=== PATIENT | female | born 1945 | race Caucasian/White ===

== ENCOUNTER → 2017-01-16 | Outpatient (CLI) | payer MEDICARE ==
[~2017-01-16] MED LIST: ANTIBIOTIC PO; ASP325T PO; ASP81CT PO; ASPI-624 PO; BISO1TAB8 PO; HYDR-34 PO; IBUP-15 PO; MAGN400C PO; MELO-195 PO; OXYC-12 PO; PNT40TEC PO; POTA10CA43 PO; POTASSIUM 20 MEQ PO; PREG50C PO; SIMV20TA3 PO; SULF1TAB38 PO; VIT1TABL56 PO; VITA1CAP59 PO
--- OUTSIDE RECORDS SUMMARY | 2017-01-16 10:53 | XMS REPORT | Continuity of Care Document ---
Author Author [facility] Organization [facility] Address Unknown Phone Unavailable Care Team Providers Care Production Line Assembler Name Role Phone HIGINIO OQUENDO MD PCP Insurance Providers Payer Name Policy Number Subscriber Name Relationship s Medicare [id number] Cindi Quijano 18 Self / Same As Patient Blue [employer] [facility] Supp [id number] Cindi Quijano 18 Self / Same As Patient Advance Directives Directive Response Recorded Date/Time Advance Directives Yes 02/17/14 7:26am Health Care Power of Slurry Tank Tender No 02/17/14 7:26am Organ Donor Yes 02/17/14 7:26am Problems No problem information available. Medications Current Home Medications Medication Dose Units Route Directions Days/Qty Instructions Start Date Pantoprazole Sodium 40 Mg 40 Mg Oral Daily 03/15/10 Pregabalin 50 Mg 50 Mg Oral Twice A Day 03/15/10 Bisoprolol Fumarate/Hctz 1 Each 2.5-6.5 Mg Oral Daily 08/28/11 Oxycodone Hcl/Acetaminophen 1 Each 1-2 Each Oral Q4-6H Prn 20 01/26/13 Aspirin 81 Mg 81 Mg Oral Daily 02/17/14 Past Home Medications Medication Directions Ordered Status Simvastatin 20 Mg Tablet, 20 Mg Oral Daily 03/15/10 Discontinued Aspirin 81 Mg Chew, 81 Mg Oral Daily 03/15/10 Discontinued Vit B Cmplx #9/Fa/Vit C/Vit E 1 Each Tablet, 1 Each Oral Daily 03/15/10 Discontinued Acetaminophen/Hydrocodone Bitart 1 Ea Tablet, 1 Ea Oral Q 4 - 6 Hr Prn Discontinued [Antibiotic] , 1 Oral Twice A Day 01/22/13 Discontinued Aspirin 325 Mg Tab, 325 Mg Oral Daily 01/26/13 Discontinued Magnesium Oxide 400 Mg Capsule, 400 Mg Oral Daily 01/26/13 Discontinued [Potassium 20 Meq] , 20 Meq Oral Once 01/26/13 Discontinued Social History Social History Problem Response Recorded Date/Time Alcohol Use Rarely Uses 01/22/2013 11:43am Recreational Drug Use No 01/22/2013 11:43am Recent Foreign Travel No 01/22/2013 11:43am Recent Infectious Disease Exposure No 01/22/2013 11:43am Hospitalization with Isolation Denies 01/26/2013 4:06pm Sexually Transmitted Disease No 01/22/2013 11:43am HIV/AIDS No 01/16/2013 10:09am Sexually Transmitted Disease No 01/22/2013 11:43am Hospitalization with Isolation Denies 01/26/2013 4:06pm Hx Sexually Transmitted Disorders No 05/28/2012 8:00am Hospital Discharge Instructions Current inpatient/outpatient. Discharge instructions are currently unavailable. Plan of Care Prescriptions Functional Status No functional status results. Allergies, Adverse Reactions, Alerts Allergen Type Severity Reaction Status Last Updated thiopental ([id number]) Allergy Unknown Active 05/27/07 Immunizations No immunization records. Vital Signs No known vital signs results. Results No known relevant diagnostic tests, laboratory data and/or discharge summary. Procedures Procedure Status Date Provider(s) Cardiac event recording Completed 05/31/16 ANABELLA MELISSA Encounters Encounter Location Arrival/Admit Date Discharge/Depart Date Attending Provider Registered Clinic [facility] 08/21/16 9:32am HIGINIO OQUENDO MD Discharged Recurring [facility] 06/23/16 6:41am 11:59pm ANABELLA MELISSA
--- NOTE | 2017-01-16 14:45 | Diagnostic Imaging Report ---
Three views of the right ribs. INDICATION: Right rib pain. FINDINGS: No rib fracture seen. The right lung is clear. No pleural effusion. IMPRESSION: No rib fracture seen. Dictated by: Dictated on workstation # [id number]
== END ==
LOC: RAD 10:49
PROVIDERS: ATTEND Family Medicine
DX: R07.81 Pleurodynia (principal)
CPT/HCPCS: 71100

== ENCOUNTER → 2017-12-14 | Outpatient (CLI) | payer MEDICARE ==
--- NOTE | 2017-12-14 12:16 | Diagnostic Imaging Report ---
INDICATION: Persistent cough and shortness of air. TIME OF EXAM: 12:18 p.m. Comparison is made with prior study from 01/25/2013. The heart size is normal. The pulmonary vascularity is unremarkable. The lungs are clear. No infiltrate, effusion or pneumothorax is detected. IMPRESSION: No acute cardiopulmonary process is detected. Dictated by: Dictated on workstation # [id number]
== END ==
LOC: RAD 11:23
PROVIDERS: ATTEND Nurse Practitioner Family
DX: R05 Cough (principal)
CPT/HCPCS: 71046

== ENCOUNTER → 2018-04-18 | Outpatient (CLI) | payer MEDICARE ==
[~2018-04-18] VITALS: Ht 172.7 cm; Wt 69.9 kg
[~2018-04-18] MED LIST changes: +CATHETER FLUSH 10 ML SYR IV PRN; +REGADENOSON 0.4 MG/5 ML SYR (LEXISCAN) IV ONE
[2018-04-18 08:19] VITALS: BP 159/75
--- NOTE | 2018-04-18 13:12 | STRESS TEST ---
DATE OF SERVICE: 04/18/2018 RESTING AND POST REGADENOSON TECHNETIUM-99M TETROFOSMIN SPECT CT IMAGING ORDERING PHYSICIAN: JAKE Teague PRIMARY CARE PHYSICIAN: Dr. Dahl. CLINICAL DIAGNOSIS: Shortness of breath, palpitations. Baseline images were carried out after injection of 10.69 mCi of technetium-99m tetrofosmin, but this was followed by 0.4 mg regadenoson and 31.2 mCi of technetium-99m tetrofosmin for stress imaging. The electrocardiogram showed sinus rhythm with frequent premature atrial contractions throughout the study. The electrocardiogram did not change significantly with regadenoson infusion. She tolerated the procedure well. Review of images at rest and following stress does not indicate any significant perfusion defects consistent with significant myocardial ischemia or infarction. Gating could not be carried out due to frequent ectopy. CONCLUSIONS: 1. No evidence of any significant myocardial ischemia or infarction on this study. 2. Gaiting could not be carried out due to frequent ectopy (frequent premature atrial contractions). Job ID: [id number] DocumentID: [id number] Dictated Date: 04/18/2018 10:01:24 Regional Operations Manager Date: 04/18/2018 13:12:06 Dictated By: CHARY CANTU MD, MA, FACP, FACC,
== END ==
LOC: CARD 06:57
PROVIDERS: ATTEND Nurse Practitioner Family
DX: R06.09 Other forms of dyspnea (principal); R00.2 Palpitations; I25.10 Atherosclerotic heart disease of native coronary artery without angina pectoris; I49.1 Atrial premature depolarization; I08.3 Combined rheumatic disorders of mitral, aortic and tricuspid valves
CPT/HCPCS: 93306

== ENCOUNTER 2018-05-07 07:59 | Day surgery (SDC) | payer MEDICARE ==
[~2018-05-07] VITALS: Ht 172.7 cm; Wt 69.9 kg
[2018-05-07] VITALS (10 sets, daily range): BP systolic 117–177; BP diastolic 54–92
[~2018-05-07 07:59] MED LIST changes: -CATHETER FLUSH 10 ML SYR IV PRN; -REGADENOSON 0.4 MG/5 ML SYR (LEXISCAN) IV ONE
[2018-05-07] MEDS ORDERED: NS IV 1000 ML 1,000 ML ONE (08:05)
[2018-05-07] MEDS ORDERED: LIDOCAINE 2% VISCOUS 15 ML UDC ONE (08:05)
[2018-05-07] MEDS ORDERED: NS IV 1000 ML 1,000 ML IV SCH (08:15)
[2018-05-07 08:39] LABS: HEMOGLOBIN 12.2 G/DL (11.5-16.0); MEAN PLATELET VOLUME 12.2 FL (7.4-10.4); RED BLOOD COUNT 3.8 10^6/uL (4.35-5.85); RED CELL DISTRIBUTION WIDTH 12.6 % (10.0-14.5)
[2018-05-07 08:53] LABS: PROTHROMBIN TIME PATIENT 13.4 SEC (12.2-14.7)
[2018-05-07 08:59] LABS: BILIRUBIN,TOTAL 0.7 MG/DL (0.1-1.0); CALCIUM 9.6 MG/DL (8.5-10.1); CREATININE SERUM 0.96 MG/DL (0.60-1.30); POTASSIUM 4.3 MMOL/L (3.6-5.0); TOTAL PROTEIN 6.9 GM/DL (6.4-8.2)
[2018-05-07] MEDS ORDERED: MELO15TA39 PO (09:12)
[2018-05-07] MEDS ORDERED: GABA-486 PO (09:12)
[2018-05-07] MEDS ORDERED: OMEP20CA12 PO (09:12)
[2018-05-07] MEDS ORDERED: METO-387 PO (09:12)
[2018-05-07] MEDS ORDERED: LYSI500T3 PO (09:15)
[2018-05-07] MEDS ORDERED: ASPI-983 PO (09:15)
[2018-05-07] MEDS ORDERED: CHOL20003 PO (09:15)
[2018-05-07] MEDS ORDERED: VITA150T PO (09:15)
[2018-05-07] MEDS ORDERED: ACET-2469 PO (09:15)
[2018-05-07] MEDS ORDERED: MIDAZOLAM 5 MG/5 ML (VERSED) VIAL ONE (10:24)
[2018-05-07] MEDS ORDERED: fentaNYL INJECTION 100 MCG/2 ML AMP ONE (10:24)
--- NOTE | 2018-05-07 11:12 | Cardiac Procedure Note-CS/ASA ---
Pre-Procedure Note Pre-Op Procedure Note H&P Reviewed The H&P was reviewed, patient examined and no changes noted. Date H&P Reviewed: May 07, 2018 Time H&P Reviewed: 11:11 Conscious Sedation Pre-Proced Time Reviewed: 11:11 ASA Class: 3 Airway Mallampati Classification: (pilot station appropriate class) I. II. III, IV Lungs Heart ASA score ASA 1: a normal healthy patient ASA 2: a patient with a mild systemic disease (mid diabetes, controlled hypertension, obesity ASA 3: a patient with a severe systemic disease that limits activity (angina , COPD, prior Myocardial infarction) ASA 4: a patient with an incapacitating disease that is a constant threat to life (CHF, renal failure) ASA 5: a moribund patient not expected to survive 24 hrs. (ruptured aneurysm) ASA 6: a declared brain patient whose organs are being harvested. For emergent operations, add the letter E after the classification Grade 2 Sedation Plan: Analgesia, Amnesia, Plan communicated to team members, Discussed options with patient/fam, Discussed risks with patient/fam Note The patient is an appropriate candidate to undergo the planned procedure, sedation, and anesthesia. The patient immediately re-assessed prior to indication. CHARY CANTU MD FACP FAC CCDS May 07, 2018 11:12
== END 2018-05-07 12:40 | disposition home or self-care (01) ==
LOC: CATH 07:59
PROVIDERS: ATTEND Internal Medicine Cardiovascular Disease
DX: I34.0 Nonrheumatic mitral (valve) insufficiency (principal); I27.20 Pulmonary hypertension, unspecified; I25.10 Atherosclerotic heart disease of native coronary artery without angina pectoris; Z79.82 Long term (current) use of aspirin; Z79.899 Other long term (current) drug therapy
CPT/HCPCS: 36415; 80053; 80061; 85027; 85610; 85730; 87081; 93312; 93325

== ENCOUNTER 2018-07-02 11:49 | Observation (INO) | payer MEDICARE ==
[~2018-07-02] VITALS: Ht 172.7 cm; Wt 69.7 kg
[2018-07-02] VITALS (7 sets, daily range): BP systolic 139–165; BP diastolic 69–108
[~2018-07-02 11:49] MED LIST changes: +ACET-2469 PO; +ASPI-983 PO; +CHOL20003 PO; +GABA-486 PO; +LYSI500T3 PO; +MELO15TA39 PO; +METO-387 PO; +OMEP20CA12 PO; +VITA150T PO
--- NOTE | 2018-07-02 16:35 | History & Physicial ---
History of Present Illness History of Present Illness Reason for visit/HPI PT IS A 72 Y/O FEMALE WHO IS KNOWN TO MY CLINIC. SHE PRESENTED TO THE OFFICE WITH COMPLAINTS OF FEELING DIZZY AND CLAMMY ALL DAY - SHE STATED THAT SHE WOKE UP FEELING OKAY THIS MORNING, THEN AROUND 3PM SHE FELT LIKE SHE WAS GOING TO PASS OUT EARLIER TODAY AND AGAIN PRIOR TO COMING IN TO THE OFFICE. SHE REPORTS THAT SHE DID NOT LOOSE CONSCIOUSNESS BUT HAD TO SIT SHE WAS SHORT OF BREATH AND LIGHT HEADED. SHE REPORTS THAT SHE WAS SEEN BY DR. CANTU RECENTLY AND TOLD T HAT SHE HAS MITRAL VALVE REGURGITATION, BUT DID NOT HAVE AN ARRHYTHMIA THAT SHE REMEMBERS., SHE TOOK METOPROLOL THIS MORNING. Date of Admission 07/02/18 Date Seen by Provider: Jul 02, 2018 Time Seen by Provider: 16:30 I consulted on this patient on 07/02/18 16:27 Attending Physician Higinio Dahl MD Admitting Physician Higinio Dahl MD Consult CHARY CANTU MD Allergies and Home Medications Allergies Coded Allergies: Thiopental (Verified Allergy, Unknown, 05/27/07) Home Medications Acetaminophen/Diphenhydramine 1 Each Tablet, 1 TAB PO HS, (Reported) Aspirin 81 Mg Tablet.dr, 81 MG PO HS, (Reported) Cholecalciferol (Vitamin D3) 2,000 Unit Capsule, 2,000 UNIT PO DAILY, (Reported) Gabapentin 100 Mg Capsule, 100 MG PO TID, (Reported) Lysine 500 Mg Tablet, 500 MG PO DAILY, (Reported) Meloxicam 15 Mg Tablet, 15 MG PO DAILY, (Reported) Metoprolol Succinate 25 Mg Tab.er.24h, 25 MG PO DAILY, (Reported) Omeprazole 20 Mg Capsule.dr, 20 MG PO DAILY, (Reported) Vitamin B Complex & Vit C No.4 150 Mg Tablet, 150 MG PO HS, (Reported) Patient Home Medication List Home Medication List Reviewed: Yes Past Tlojptg-Jusqtm-Dozpyc Hx Patient Social History Marrital Status: Living Status: LIVES AT HOME WITH SPOUSE Employed/Student: retired Alcohol Use: Denies Use Smoking Status: Never a Smoker 2nd Hand Smoke Exposure: No Physical Abuse Screen: No Sexual Abuse: No Recent Foreign Travel: No Contact w/other who traveled: No Recent Hopitalizations: No Recent Infectious Disease Expo: No Immunizations Up To Date Tetanus Booster (TDap): More than 5yrs Pediatric: No Date of Pneumonia Vaccine: Jul 07, 2014 Surgeries Abdominal (2000, ABDOMINAL REPAIR), Appendectomy, Breast (LUMPECTOMY), Hysterectomy (), Joint Replacement (2012 KNEE REPLACEMENT) Respiratory No Currently Using CPAP: No Currently Using BIPAP: No Cardiovascular Yes Hypertension, Valvular Heart Disease (MITRAL VALVE) Neurological No Reproductive System : No Hx Reproductive Disorders: No Sexually Transmitted Disease: No HIV/AIDS: No Female Reproductive Disorders: Denies RIP SAWYER History: Hysterectomy Genitourinary No Gastrointestinal Yes Gastroesophageal Reflux Musculoskeletal Yes Arthritis Endocrine History of Endocrine Disorders: No HEENT History of HEENT Disorders: No Loss of Vision: Denies Hearing Impairment: Denies Cancer No Psychosocial History of Psychiatric Problem: No Integumentary History of Skin or Integumenta: No Blood Transfusions History of Blood Disorders: No Adverse Reaction to a Blood Tr: No Reviewed Nursing Assessment Reviewed/Agree w Nursing PMH: Yes Family Medical History Significant Family History: Cancer (FATHER WITH COLON CANCER, MOM WITH LUNG CANCER, SISTER WITH LUNG CANCER), Other Conditions/Hx (GRANDMOTHER DEMENTIA) Review of Systems Constitutional: No chills, No fever; malaise, weakness EENTM: No hearing loss, No vision loss, No throat pain Respiratory: No cough, No dyspnea on exertion, No short of breath Cardiovascular: No edema, No palpitations; other (NEAR SYNCOPE) Gastrointestinal: No abdominal pain; nausea, vomiting Genitourinary: No dysuria, No frequency Musculoskeletal: No back pain, No joint swelling, No muscle weakness Skin: No change in color, No lesions Psychiatric/Neurological: Denies Anxiety, Denies Depressed All Other Systems Reviewed Negative Unless Noted: Yes Physical Exam Vital Signs Capillary Refill : Height, Weight, BMI Height: 5'8.00" Weight: 154lbs. 0.0oz. 69.753089kc; 23.4 BMI Method:Estimated General Appearance: WD/WN, Mild Distress (DUE TO DIZZINESS) HEENT: PERRL/EOMI, Pharynx Normal Neck: Full Range of Motion, Non Tender, Supple Respiratory: Chest Non Tender, Lungs Clear, Normal Breath Sounds, No Accessory Muscle Use, No Respiratory Distress Cardiovascular: Bradycardia, Irregularly Irregular Gastrointestinal: Normal Bowel Sounds, Non Tender, Soft Rectal: Deferred Extremity: Normal Capillary Refill, Non Tender, No Calf Tenderness, No Pedal Edema Neurologic/Psychiatric: Alert, Oriented x3 Skin: Normal Color, Warm/Dry Lymphatic: No Adenopathy Assessment/Plan Assessment and Plan BRADYCARDIA IRREGULAR RHYTHM - SUSPECT AFIB DIZZINESS NAUSEA AND EMESIS BRADYCARDIA - WITH IRREGULAR RHYTHM - SUSPECT AFIB - DISCUSSED WITH DR. CANTU - PT ADMITTED TO THE HOSPITAL FROM CLINIC, IV FLUIDS INITIATED AND EKG OBTAINED , PT PLACED IN ICU FOR CLOSE MONITORING AND TELEMETRY PLACED ON PATIENT. DIZZINESS WITH NAUSEA AND EMESIS - CHECK LABS, CHECK CHEST XRAY, ZOFRAN IV AND IV FLUIDS INITIATED. ADVANCE DIET TOLERATED. FOR GI PROPHYLAXIS, WILL START PROTONIX IV BID AND LOVENOX FOR DVT PROPHYLAXIS Admission Diagnosis BRADYCARDIA IRREGULAR RHYTHM - SUSPECT AFIB DIZZINESS NAUSEA AND EMESIS Admission Status: Inpatient Order (span 2 midnights) Reason for Inpatient Admission: ADMIT TO HOSPITAL FOR BRADYCARDIA, POSSIBLE NEW ONSET -WILL REQUIRE AT LEAST 2 MIDNIGHTS FOR INVESTIGATION AND TREATMENT STRATEGY TO BE DETERMINED AND INITATED FOR STABILIZATION OF SYMPTOMS. HIGINIO DAHL MD Jul 02, 2018 16:35
[2018-07-02] MEDS ORDERED: CATHETER FLUSH 10 ML SYR IV PRN (16:45)
[2018-07-02] MEDS: NS IV 1000 ML 1,000 ML IV SCH (16:58)
[2018-07-02] MEDS ORDERED: ONDANSETRON 4 MG/2 ML (SDV) Z0FRAN IVP PRN (17:00)
[2018-07-02] MEDS ORDERED: ONDANSETRON 4 MG/2 ML (SDV) Z0FRAN IVP NR (17:00)
[2018-07-02] MEDS: ENOXAPARIN 40 MG/0.4 ML (LOVENOX) SYR SC SCH (17:06)
--- NOTE | 2018-07-02 17:39 | Consultation-Cardiology ---
HPI-Cardiology Cardiology Consultation: Date of Consultation 07/02/18 Time Seen by Provider: 17:00 Date of Admission Attending Physician Faith Dahl MD Admitting Physician Faith Dahl MD Consulting Physician CHARY CANTU MD, MA, FACP, FACC, FSCAI, CCDS HPI: Chief Complaint: CC: Dizziness/vertigo 72 yo woman admitted from Dr Dahl's office where she had gone for eval of dizziness. Reports dizziness ("as if room spinning around") since this morning. Denies palp or syncope. Denies cp or shortness of breath or ankle swelling. Notes gen malaise and weakness. Denies focal weakness Review of Systems-Cardiology Review of Systems Constitutional: malaise; No weight loss, No weight gain Eyes: No vision change Ears/Nose/Throat: No ear discharge, No nasal drainage, No recent hearing loss Respiratory: As described under HPI Cardiovascular: As described under HPI Gastrointestinal: No constipation, No diarrhea, No difficulty swallowing, No vomiting Genitourinary: No dysuria, No hematuria, No urine frequency changes Musculoskeletal: No back pain, No joint pain Skin: No rash, No ulcerations Psychiatric/Neurological: As described under HPI Hematologic: No bleeding abnormalities All Other Systems Reviewed Negative Unless Noted: Yes WDR-Dkncxh-Qynlib Hx Patient Social History Marrital Status: Living Status: LIVES AT HOME WITH SPOUSE Employed/Student: retired Alcohol Use: Denies Use Smoking Status: Never a Smoker 2nd Hand Smoke Exposure: No Recent Foreign Travel: No Recent Infectious Disease Expo: No Physical Abuse Screen: No Sexual Abuse: No Immunizations Up To Date Tetanus Booster (TDap): More than 5yrs Date of Pneumonia Vaccine: Jul 07, 2014 Past Medical History PMH As described under Assessment. Family Medical History Family Medical History: Does not report fam h/o early CAD or SCD Allergies and Home Medications Allergies Coded Allergies: Thiopental (Verified Allergy, Unknown, 05/27/07) Home Medications Acetaminophen/Diphenhydramine 1 Each Tablet, 1 TAB PO HS, (Reported) Aspirin 81 Mg Tablet.dr, 81 MG PO HS, (Reported) Cholecalciferol (Vitamin D3) 2,000 Unit Capsule, 2,000 UNIT PO DAILY, (Reported) Gabapentin 100 Mg Capsule, 100 MG PO TID, (Reported) Lysine 500 Mg Tablet, 500 MG PO DAILY, (Reported) Meloxicam 15 Mg Tablet, 15 MG PO DAILY, (Reported) Metoprolol Succinate 25 Mg Tab.er.24h, 25 MG PO DAILY, (Reported) Omeprazole 20 Mg Capsule.dr, 20 MG PO DAILY, (Reported) Vitamin B Complex & Vit C No.4 150 Mg Tablet, 150 MG PO HS, (Reported) Patient Home Medication List Home Medication List Reviewed: Yes Physical Exam-Cardiology Physical Exam Vital Signs/I&O 07/02/18 07/02/18 16:46 17:00 Pulse 84 71 B/P (MAP) 163/69 (100) O2 Delivery Room Air Capillary Refill : Constitutional: well-developed, well-nourished HEENT: EOMI, hearing is well preserved; No xanthelasmas are seen Neck: carotid pulses are 2 + bilaterally, with good upstrokes Respiratory: No accessory muscle use, No respiratory distress; chest expansion is symmetric, lungs clear to auscultation Cardiovascular: other (Regular with intermittent irregularity, S1 and S2, 2/6 HSM at card apex that radiates towards the axilla) Gastrointestinal: No tender; soft; No guarding, No rebound; audible bowel sounds Extremities: No clubbing, No cyanosis, No significant edema Neurologic/Psychiatric: oriented x 3, grossly intact, power is 5/5 both on sides Skin: No rash on exposed areas, No ulcerations on exposed areas A/P-Cardiology Assessment/Admission Diagnosis Vertigo/dizziness, etiology undetermined Chronic MVP and mod mitral regurg. Echocardiogram of April 18, 2018 showed LVEF 60-65%. No regional wall motion abnormalities identified. Grade 1 diastolic dysfunction. Mild mitral valve prolapse, involving the posterior leaf. Mod to severe, 1-2+ MR. Mild aortic valve regurg. Mild to mod TR. PASP approx 35 mmHg. 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 Mod MR, some of which tracks along the posterior wall of the LA. LVEF 60-65% Chronic frequent PACs and PVCs, documented on several studies. 30-day Event Monitor of May/Jun 2016 showed frequent PACs and PVCS, but no a fib or VT or SVT recorded No significant coronary artery disease on cardiac catheterization of February 2010 MPI of April 18, 2018 showed no evidence of ischemia or infarction. Gating could not be carried out d/t freqent PAC's H/o carotid arterial disease, but no recent f/u Chronic left arm and shoulder discomfort due to post-herpetic neuralgia. Relative intolerance to statins H/o Vit D deficiency, being managed by her fam phy Status post right knee replacement per Dr. De Luna in December 2012. Chronic arthritis that causes marked pain and is reponsive only to NSAIDs ( unresponsive to acetaminophen) Discussion and Recomendations * Monitor rhythm * Screening labs * Consider a neuro w/u if no significant rhythm issues * I discussed her case with Dr Dahl on the phone CHARY CANTU MD FACP FACC CCDS Jul 02, 2018 17:39
--- NOTE | 2018-07-02 17:42 | Diagnostic Imaging Report ---
INDICATION: Dizziness and weakness. TIME OF EXAM: 5:48 PM COMPARISON: Correlation is made with prior study from 12/14/2017. FINDINGS: The heart is enlarged and stable. Lungs are clear. No infiltrate or failure is seen. No effusion or pneumothorax is detected. IMPRESSION: Cardiomegaly. No acute cardiopulmonary process is detected. Dictated by: Dictated on workstation # [id number]
[2018-07-02] MEDS: PANTOPRAZOLE 40 MG (PROTONIX) VIAL IV SCH (20:57)
--- OUTSIDE RECORDS SUMMARY | 2018-07-02 21:58 | XMS REPORT | CCD ---
Author Author [facility] Dahl Organization [facility] Address [address] [place] [address] Phone Care Team Providers Care Manager Baby Name Role Phone PP Unavailable CCM Unavailable Summary Purpose Interface Exchange Insurance Providers Payer name Policy type / Coverage type Covered democrat ID Effective Begin Date Effective End Date WPS Medicare Part B Medicare Part B [id number] Unknown Unknown [facility] Medicare Part B [id number] Unknown Unknown Family history Sister Diagnosis Age At Onset Cancer Unknown Father Diagnosis Age At Onset Colon cancer Unknown Cancer Unknown Sister Diagnosis Age At Onset lung cancer Unknown Mother Diagnosis Age At Onset lung cancer Unknown Grandmother Diagnosis Age At Onset Dementia Unknown Social History Social History Element Codes Description Effective Dates Marital status Unknown Zbigniew Dixon) 10/25/2017 Number of children Unknown 2 1 child 10/25/2017 Employment Unknown Retired 07/15/[address]: 112656464 Never smoker 07/15/2015 Alcohol history Unknown occasionally drinks alcohol three times a week 07/15/2015 Allergies, Adverse Reactions, Alerts Allergies, Adverse Reactions, Alerts data not found Past Medical History Illness Codes Condition Status Onset Date Resolved Date Acute laryngopharyngitis ICD-9: 465.0 ICD-10: J06.0 Active 11/08/2017 Unknown Other allergic rhinitis ICD-9: 477.8 ICD-10: J30.89 Active 11/08/2017 Unknown Encounter for general adult medical examination with abnormal findings ICD-9: V70.0 ICD-10: Z00.01 Active 10/25/2017 Unknown Vitamin D deficiency, unspecified ICD-9: 268.9 ICD-10: E55.9 Active 07/14/2015 Unknown Encounter for screening mammogram for malignant neoplasm of breast ICD-9: V76.12 ICD-10: Z12.31 Active 01/16/2017 Unknown Gastro-esophageal reflux disease without esophagitis ICD-9: 530.81 ICD-10: K21.9 Active 07/14/2015 Unknown Pleurodynia ICD-9: 786.50 ICD-10: R07.81 Active 01/16/2017 Unknown Acute suppurative otitis media without spontaneous rupture of ear drum, right ear ICD-9: 382.00 ICD-10: H66.001 Active 08/23/2016 Unknown Other infective otitis externa, right ear ICD-9: 380.10 ICD-10: H60.391 Active 08/23/2016 Unknown Palpitations ICD-9: 785.1 ICD-10: R00.2 Active 07/17/2016 Unknown Osteoarthritis, unspecified site ICD-9: 715.90 ICD-10: M19.9 Active 07/14/2015 Unknown Osteoarthritis Unknown Active 07/15/2015 Unknown ESOPHAGEAL REFLUX ICD- 9: 530.81 Active 07/14/2015 Unknown Osteoarthritis ICD-9: 715.90 Active 07/14/2015 Unknown Osteopenia ICD-9: 733.90 Active 07/14/2015 Unknown Vitamin D deficiency ICD-9: 268.9 Active 07/14/2015 Unknown Problems Condition Codes Effective Dates Condition Status Acute laryngopharyngitis ICD-9: 465.0 ICD-10: J06.0 11/08/2017 Active Other allergic rhinitis ICD-9: 477.8 ICD-10: J30.89 11/08/2017 Active Encounter for general adult medical examination with abnormal findings ICD-9: V70.0 ICD-10: Z00.01 10/25/2017 Active Vitamin D deficiency, unspecified ICD-9: 268.9 ICD-10: E55.9 07/14/2015 Active Encounter for screening mammogram for malignant neoplasm of breast ICD-9: V76.12 ICD-10: Z12.31 01/16/2017 Active Gastro-esophageal reflux disease without esophagitis ICD-9: 530.81 ICD-10: K21.9 07/14/2015 Active Pleurodynia ICD-9: 786.50 ICD-10: R07.81 01/16/2017 Active Acute suppurative otitis media without spontaneous rupture of ear drum, right ear ICD-9: 382.00 ICD-10: H66.001 08/23/2016 Active Other infective otitis externa, right ear ICD-9: 380.10 ICD-10: H60.391 08/23/2016 Active Palpitations ICD-9: 785.1 ICD-10: R00.2 07/17/2016 Active Osteoarthritis, unspecified site ICD-9: 715.90 ICD-10: M19.9 07/14/2015 Active Osteoarthritis Unknown 07/15/2015 Active ESOPHAGEAL REFLUX ICD- 9: 530.81 07/14/2015 Active Osteoarthritis ICD-9: 715.90 07/14/2015 Active Osteopenia ICD-9: 733.90 07/14/2015 Active Vitamin D deficiency ICD-9: 268.9 07/14/2015 Active Medications Medication Codes Instructions Start Date Stop Date Status Fill Instructions Tessalon Perles 100 mg capsule RxNorm: 474486 1-2 Capsule(s) PO TID as needed cough 11/08/2017 No Stop Date Active prednisone 20 mg tablet RxNorm: 533293 2 Tablet(s) PO daily 08/201811/12/2017 Active Augmentin 875 mg-125 mg tablet RxNorm: 307431 1 Tablet(s) PO BID 11/08/2017 11/10/2017 Active to equal a total of 10 days Kenalog 40 mg/mL suspension for injection RxNorm: 8212115 1 Milliliter(s) Inj 11/08/2017 11/08/2017 Inactive meloxicam 15 mg tablet RxNorm: 794208 Tablet(s) 1 TABLET(S) PO DAILY 06/08/2017 06/02/2018 Active omeprazole 20 mg tablet,delayed release RxNorm: 217914 1 TABLET(S) PO DAILY 04/16/2017 01/10/2018 Active gabapentin 100 mg capsule RxNorm: 265661 1 CAPSULE(S) PO TID 11/16/2017 Active gabapentin 100 mg capsule RxNorm: 391683 1 CAPSULE(S) PO TID 12/22/2016 Inactive amoxicillin 500 mg capsule RxNorm: 445074 1 Capsule(s) PO TID 08/24/2016 09/02/2016 Inactive ciprofloxacin 0.3 % eye drops RxNorm: 526698 2 Drop(s) OTIC BID 08/24/2016 10/24/2017 Inactive omeprazole 20 mg tablet,delayed release RxNorm: 037686 1 TABLET(S) PO DAILY 07/18/2016 04/13/2017 Inactive meloxicam 15 mg tablet RxNorm: 259658 Tablet(s) 1 TABLET(S) PO DAILY 05/17/2016 05/16/2016 Inactive meloxicam 15 mg tablet RxNorm: 038713 Tablet(s) 1 TABLET(S) PO DAILY 05/17/2016 07/17/2016 Inactive aspirin 81 mg tablet RxNorm: 996676 1 Tablet(s) PO daily 2015 No Stop Date Active Vitamin D2 50,000 unit capsule RxNorm: 873435 Capsule(s) 1 CAPSULE(S) PO QW 01/13/2016 07/17/2016 Inactive Patient requests 90 days supply Vitamin D2 50,000 unit capsule RxNorm: 410467 Capsule(s) 1 CAPSULE(S) PO QW 01/13/2016 01/12/2016 Inactive Patient requests 90 days supply gabapentin 100 mg capsule RxNorm: 870232 1 CAPSULE(S) PO TID 05/23/2016 Inactive meloxicam 15 mg tablet RxNorm: 383946 1 TABLET(S) PO DAILY 05/09/2016 Inactive Vitamin D2 50,000 unit capsule RxNorm: 229711 1 Capsule(s) PO QW 07/28/2015 07/27/2015 Inactive Vitamin D2 50,000 unit capsule RxNorm: 528241 1 CAPSULE(S) PO QW 07/28/2015 01/12/2016 Inactive Patient requests 90 days supply Vitamin D2 50,000 unit capsule RxNorm: 953210 1 Capsule(s) PO QW 07/28/2015 07/27/2015 Inactive omeprazole 20 mg tablet,delayed release RxNorm: 473559 1 Tablet(s) PO daily 07/26/2015 07/17/2016 Inactive meloxicam 15 mg tablet RxNorm: 178576 1 Tablet(s) PO daily 11/11/2015 Inactive gabapentin 100 mg capsule RxNorm: 010501 1 CAPSULE(S) PO TID 08/28/2015 Inactive Patient requests 90 days supply gabapentin 100 mg capsule RxNorm: 426058 1 Capsule(s) PO TID 05/27/2015 Inactive gabapentin 100 mg capsule RxNorm: 896029 1 Capsule(s) PO TID 05/27/2015 Inactive gabapentin 100 mg capsule RxNorm: 721373 1 Capsule(s) PO TID 09/24/2015 Inactive meloxicam 15 mg tablet RxNorm: 189318 1 Tablet(s) PO daily 07/20/2015 Inactive metoprolol succinate ER 25 mg tablet,extended release 24 hr RxNorm: 720757 1 Tablet(s) PO daily No Start Date Active Vitamin D3 5,000 unit tablet RxNorm: 405498 1 Tablet(s) PO daily No Start Date Active Tylenol PM Extra Strength 25 mg-500 mg tablet RxNorm: 6469623 1 Tablet(s) PO QHS No Start Date Active Super B Complex oral RxNorm: 80150 oral No Start Date Active lysine oral RxNorm: 6536 oral No Start Date Active aspirin 81 mg tablet RxNorm: 468151 1 Tablet(s) PO BID No Start Date 01/12/2016 Inactive meloxicam 15 mg tablet RxNorm: 958768 1 Tablet(s) PO daily No Start Date 04/21/2015 Inactive Vitamin D3 2,000 unit tablet RxNorm: 803595 1 Tablet(s) PO daily No Start Date 07/18/2016 Inactive Vitamin B RxNorm: 1 PO BID No Start Date Inactive omeprazole 20 mg tablet,delayed release RxNorm: 554078 1 Tablet(s) PO daily No Start Date 07/25/2015 Inactive Medication Administered Medication Codes Instructions Start Date Status Kenalog 40 mg/mL suspension for injection RxNorm: 1415892 1Milliliter 11/08/2017 No longer Active Immunizations No Immunization data Assessments Condition Codes Effective Dates Acute laryngopharyngitis ICD-10: J06.0 ICD-9: 465.0 11/08/2017 Other allergic rhinitis ICD-10: J30.89 ICD-9: 477.8 11/08/2017 Vitamin D deficiency, unspecified ICD-10: E55.9 ICD-9: 268.9 10/25/2017 Encounter for general adult medical examination with abnormal findings ICD-10: Z00.01 ICD-9: V70.0 10/25/2017 Pleurodynia ICD-10: R07.81 ICD-9: 786.50 01/16/2017 Encounter for screening mammogram for malignant neoplasm of breast ICD-10: Z12.31 ICD-9: V76.12 01/16/2017 Gastro-esophageal reflux disease without esophagitis ICD-10 : K21.9 ICD-9: 530.81 01/16/2017 Other infective otitis externa, right ear ICD-10: H60.391 ICD-9: 380.10 08/24/2016 Acute suppurative otitis media without spontaneous rupture of ear drum, right ear ICD-10: H66.001 ICD-9: 382.00 08/24/2016 Palpitations ICD-10: R00.2 ICD-9: 785.1 07/18/2016 Osteoarthritis, unspecified site ICD-10: M19.9 ICD-9: 715.90 01/13/2016 ESOPHAGEAL REFLUX ICD-9: 530.81 2014 Osteopenia ICD-9: 733.90 07/15/2015 Osteoarthritis ICD-9: 715.90 07/15/2015 Vitamin D deficiency ICD-9: 268.9 2014 Reason For Visit Reason For Visit Effective Dates Notes cough 11/08/2017 Annual Medicare Wellness Exam 10/25/2017 gastroesophageal reflux 01/16/2017 earache 08/24/2016 arthralgia(s) 07/18/2016 arthralgia(s) 01/13/2016 arthralgia(s) 07/15/2015 Results Observation Observation Code Item Item Code Result Date Vitamin D 25 Oh [id number] VITAMIN D, 25 HYDROXY 47.37 ng/mL Tsh Ord6 hTSH II 1.58 uIU/mL 10/25/2017 Cbc With Differential Ord2 WBC 7.60 K/ul 10/25/2017 Cbc With Differential Ord2 RBC 3.93 M/ul 10/25/2017 Cbc With Differential Ord2 HGB 12.3 g/dl 10/25/2017 Cbc With Differential Ord2 Neut% 66.6 % 10/25/2017 Cbc With Differential Ord2 HCT 37.7 % 10/25/2017 Cbc With Differential Ord2 MCV 95.9 fl 10/25/2017 Cbc With Differential Ord2 Lymph% 22.8 % 10/25/2017 Cbc With Differential Ord2 MCH 31.3 pg 10/25/2017 Cbc With Differential Ord2 [place]% 8.2 % 10/25/2017 Cbc With Differential Ord2 MCHC 32.6 pg 10/25/2017 Cbc With Differential Ord2 Eos% 2.1 % 10/25/2017 Cbc With Differential Ord2 PLT 247 K/ul 10/25/2017 Cbc With Differential Ord2 Baso% 0.3 % 10/25/2017 Cbc With Differential Ord2 RDW 12.8 % 10/25/2017 Cbc With Differential Ord2 Neut ABS# 5.07 K/ul 10/25/2017 Cbc With Differential Ord2 Lymph ABS# 1.73 K/ul 10/25/2017 Cbc With Differential Ord2 [place] ABS# 0.6 K/ul 10/25/2017 Cbc With Differential Ord2 Eos ABS# 0.2 K/ul 10/25/2017 Cbc With Differential Ord2 Baso ABS# 0.0 K/ul 10/25/2017 Comp Metabolic Ztr286 NA 139 mEq/L 10/25/2017 Comp Metabolic Xxv413 K 4.3 mEq/L 10/25/2017 Comp Metabolic Lxp062 CL 104 mEq/L 10/25/2017 Comp Metabolic Abq735 CO2 27.0 mEq/L 10/25/2017 Comp Metabolic Coe236 ANION GAP 12 10/25/2017 Comp Metabolic Lji017 GLUCOSE 83 mg/dL 10/25/2017 Comp Metabolic Oaa932 Creat 0.9 mg/dL 10/25/2017 Comp Metabolic Vbq699 eGFR 65 ml/min/1.73m2 10/25/2017 Comp Metabolic Jcz911 BUN 24 mg/dL 10/25/2017 Comp Metabolic Mol413 B/C Ratio 26.7 Ratio 10/25/2017 Comp Metabolic Aue677 CALCIUM 9.5 mg/dL 10/25/2017 Comp Metabolic Wih357 ALK PHOS 65 U/L 10/25/2017 Comp Metabolic Evl109 AST(SGOT) 16 U/L 10/25/2017 Comp Metabolic Uau575 ALT(SGPT) 14 U/L 10/25/2017 Comp Metabolic Exg361 BILI T 0.5 mg/dL 10/25/2017 Comp Metabolic Jzz059 ALBUMIN 4.3 g/dL 10/25/2017 Comp Metabolic Amm839 TPRO 7.1 g/dL 10/25/2017 Comp Metabolic Web799 GLOB 2.8 g/dL 10/25/2017 Comp Metabolic Fpo867 A/G Ratio 1.5 Ratio 10/25/2017 Comp Metabolic Qjp477 Osmo 281 mOsmo 10/25/2017 Vitamin D 25 Oh [id number] VITAMIN D, 25 HYDROXY 108.57 ng/mL 07/12/2016 Comp Metabolic Ogh964 NA 139 mEq/L 05/30/2016 Comp Metabolic Bth320 K 4.4 mEq/L 05/30/2016 Comp Metabolic Nmd121 CL 105 mEq/L 05/30/2016 Comp Metabolic Nvv779 CO2 27.0 mEq/L 05/30/2016 Comp Metabolic Xkt168 ANION GAP 11 05/30/2016 Comp Metabolic Znm386 GLUCOSE 88 mg/dL 05/30/2016 Comp Metabolic Ylk274 Creat 0.9 mg/dL 05/30/2016 Comp Metabolic Lqa828 eGFR 66 ml/min/1.73m2 05/30/2016 Comp Metabolic Gqg697 BUN 18 mg/dL 05/30/2016 Comp Metabolic Bjk098 B/C Ratio 20.2 Ratio 05/30/2016 Comp Metabolic Mxs887 CALCIUM 9.8 mg/dL 05/30/2016 Comp Metabolic Xyp528 ALK PHOS 77 U/L 05/30/2016 Comp Metabolic Vfj622 AST(SGOT) 16 U/L 05/30/2016 Comp Metabolic Cek204 ALT(SGPT) 12 U/L 05/30/2016 Comp Metabolic Lgy753 BILI T 0.7 mg/dL 05/30/2016 Comp Metabolic Glr388 ALBUMIN 4.6 g/dL 05/30/2016 Comp Metabolic Uyn457 TPRO 7.7 g/dL 05/30/2016 Comp Metabolic Jxk225 GLOB 3.1 g/dL 05/30/2016 Comp Metabolic Agz738 A/G Ratio 1.5 Ratio 05/30/2016 Comp Metabolic Zhg646 Osmo 279 mOsmo 05/30/2016 Tsh Ord6 hTSH II 1.67 uIU/mL 05/30/2016 Cbc With Differential Ord2 WBC 6.97 K/ul 05/30/2016 Cbc With Differential Ord2 RBC 3.95 M/ul 05/30/2016 Cbc With Differential Ord2 HGB 12.6 g/dl 05/30/2016 Cbc With Differential Ord2 Neut% 64.1 % 05/30/2016 Cbc With Differential Ord2 HCT 38.1 % 05/30/2016 Cbc With Differential Ord2 MCV 96.5 fl 05/30/2016 Cbc With Differential Ord2 Lymph% 25.0 % 05/30/2016 Cbc With Differential Ord2 MCH 31.9 pg 05/30/2016 Cbc With Differential Ord2 [place]% 7.9 % 05/30/2016 Cbc With Differential Ord2 MCHC 33.1 pg 05/30/2016 Cbc With Differential Ord2 Eos% 2.6 % 05/30/2016 Cbc With Differential Ord2 PLT 242 K/ul 05/30/2016 Cbc With Differential Ord2 Baso% 0.4 % 05/30/2016 Cbc With Differential Ord2 RDW 12.9 % 05/30/2016 Cbc With Differential Ord2 Neut ABS# 4.47 K/ul 05/30/2016 Cbc With Differential Ord2 Lymph ABS# 1.74 K/ul 05/30/2016 Cbc With Differential Ord2 [place] ABS# 0.6 K/ul 05/30/2016 Cbc With Differential Ord2 Eos ABS# 0.2 K/ul 05/30/2016 Cbc With Differential Ord2 Baso ABS# 0.0 K/ul 05/30/2016 Magnesium Ord90 Mag 1.9 mg/dL 05/30/2016 Vitamin D 25 Oh [id number] VITAMIN D, 25 HYDROXY 26.82 ng/mL Cbc With Differential Ord2 WBC 6.9 K/uL 07/15/2015 Cbc With Differential Ord2 LYM 2.3 K/uL 07/15/2015 Cbc With Differential Ord2 LYM% 33.6 % 07/15/2015 Cbc With Differential Ord2 NEUT/GRAN 4.0 K/uL 07/15/2015 Cbc With Differential Ord2 NEUT/GRAN % 58.4 % 07/15/2015 Cbc With Differential Ord2 MID 0.6 K/uL 07/15/2015 Cbc With Differential Ord2 MID% 8.0 % 07/15/2015 Cbc With Differential Ord2 RBC 4.08 M/uL 07/15/2015 Cbc With Differential Ord2 HGB 12.5 g/dL 07/15/2015 Cbc With Differential Ord2 HCT 38.8 % 07/15/2015 Cbc With Differential Ord2 MCV 95 fL 07/15/2015 Cbc With Differential Ord2 MCH 31 pg 07/15/2015 Cbc With Differential Ord2 MCHC 32 g/dL 07/15/2015 Cbc With Differential Ord2 PLT 260 K/uL 07/15/2015 Cbc With Differential Ord2 RDW 14.0 % 07/15/2015 Comp Metabolic Yhp712 NA 136 mEq/L 07/15/2015 Comp Metabolic Ujq559 K 4.8 mEq/L 07/15/2015 Comp Metabolic Raw639 CL 104 mEq/L 07/15/2015 Comp Metabolic Foa317 CO2 28.0 mEq/L 07/15/2015 Comp Metabolic Loa864 ANION GAP 9 07/15/2015 Comp Metabolic Lwl969 GLUCOSE 82 mg/dL 07/15/2015 Comp Metabolic Nbp145 Creat 0.9 mg/dL 07/15/2015 Comp Metabolic Igt249 eGFR 65 ml/min/1.73m2 07/15/2015 Comp Metabolic Ojj369 BUN 24 mg/dL 07/15/2015 Comp Metabolic Ybm881 B/C Ratio 26.4 Ratio 07/15/2015 Comp Metabolic Zsv614 CALCIUM 9.9 mg/dL 07/15/2015 Comp Metabolic Kgw584 ALK PHOS 81 U/L 07/15/2015 Comp Metabolic Xgb389 AST(SGOT) 18 U/L 07/15/2015 Comp Metabolic Vzr552 ALT(SGPT) 16 U/L 07/15/2015 Comp Metabolic Xbc096 BILI T 0.5 mg/dL 07/15/2015 Comp Metabolic Zwq251 ALBUMIN 4.4 g/dL 07/15/2015 Comp Metabolic Mob021 TPRO 7.1 g/dL 07/15/2015 Comp Metabolic Dkf983 GLOB 2.7 g/dL 07/15/2015 Comp Metabolic Nrf548 A/G Ratio 1.6 Ratio 07/15/2015 Comp Metabolic Aaa171 Osmo 275 mOsmo 07/15/2015 Lipid Ord30 CHOL 228 mg/dL 07/15/2015 Lipid Ord30 HDL 51.0 mg/dl 07/15/2015 Lipid Ord30 TRIG 121 mg/dL 07/15/2015 Lipid Ord30 LDL 153 mg/dL 07/15/2015 Lipid Ord30 C/HDL 4.5 Ratio 07/15/2015 Tsh Ord6 hTSH II 1.71 uIU/mL 07/15/2015 Review of Systems System Result Effective Dates Constitutional recent illness 11/08/2017 Constitutional chills 11/08/2017 Constitutional No diaphoresis 11/08/2017 Constitutional fever 11/08/2017 Eyes No eye erythema 11/08/2017 Ears/Nose/Throat/Neck nasal allergies 08/2018 Ears/Nose/Throat/Neck nasal discharge 08/2018 Ears/Nose/Throat/Neck postnasal drip 08/2018 Ears/Nose/Throat/Neck sinus congestion Ears/Nose/Throat/Neck sore throat 2017 Cardiovascular No chest pain/pressure 08/2018 Cardiovascular No dyspnea 11/08/2017 Respiratory No chest congestion 2017 Respiratory cough 11/08/2017 Respiratory No dyspnea 11/08/2017 Gastrointestinal No constipation 2017 Gastrointestinal No diarrhea 11/08/2017 Gastrointestinal No nausea 11/08/2017 Gastrointestinal No vomiting 11/08/2017 Dermatologic No rash 11/08/2017 Neurologic No alteration of consciousness 11/08/2017 Neurologic No mental status change 2017 Constitutional No recent illness 2016 Constitutional No chills 10/25/2017 Constitutional No diaphoresis 10/25/2017 Constitutional No fever 10/25/2017 Eyes No eye erythema 10/25/2017 Ears/Nose/Throat/Neck No nasal discharge 10/25/2017 Cardiovascular No chest pain/pressure Cardiovascular No dyspnea 10/25/2017 Respiratory No cough 10/25/2017 Respiratory No dyspnea 10/25/2017 Neurologic No alteration of consciousness 10/25/2017 Neurologic No mental status change 2016 Constitutional No recent illness 2016 Constitutional No chills 01/16/2017 Constitutional No fatigue 01/16/2017 Constitutional No fever 01/16/2017 Constitutional No insomnia 01/16/2017 Constitutional No malaise 01/16/2017 Eyes No blindness 01/16/2017 Eyes No vision change 01/16/2017 Ears/Nose/Throat/Neck No dental pain Ears/Nose/Throat/Neck No dizziness 2016 Ears/Nose/Throat/Neck No dysphagia 2016 Ears/Nose/Throat/Neck No headache 2016 Ears/Nose/Throat/Neck No hearing loss Ears/Nose/Throat/Neck No nasal allergies 01/16/2017 Ears/Nose/Throat/Neck No sore throat Ears/Nose/Throat/Neck No postnasal drip 01/16/2017 Ears/Nose/Throat/Neck No sinus congestion 01/16/2017 Cardiovascular No chest pain/pressure Cardiovascular No dyspnea 01/16/2017 Cardiovascular No edema 01/16/2017 Cardiovascular No exercise intolerance Cardiovascular No fatigue 01/16/2017 Cardiovascular No near-syncope/dizziness 01/16/2017 Cardiovascular palpitations 01/16/2017 Respiratory No chest tightness 2016 Respiratory No cough 01/16/2017 Respiratory No dyspnea 01/16/2017 Respiratory No pedal edema 01/16/2017 Gastrointestinal No abdominal pain 2016 Gastrointestinal No constipation 2016 Gastrointestinal No diarrhea 01/16/2017 Gastrointestinal No gastroesophageal reflux 01/16/2017 Gastrointestinal No nausea 01/16/2017 Gastrointestinal No vomiting 01/16/2017 Genitourinary/Nephrology No dysuria 01/16 Genitourinary/Nephrology No nocturia Genitourinary/Nephrology No urinary incontinence 01/16/2017 Musculoskeletal No stiffness 01/16/2017 Musculoskeletal No swelling 01/16/2017 Musculoskeletal No muscle weakness 2016 Musculoskeletal No myalgias 01/16/2017 Dermatologic pigmentation change 2016 Dermatologic No rash 01/16/2017 Dermatologic No sores 01/16/2017 Dermatologic No scar 01/16/2017 Neurologic No dizziness 01/16/2017 Neurologic No headache 01/16/2017 Neurologic No neck pain 01/16/2017 Neurologic No syncope 01/16/2017 Psychiatric No anxiety 01/16/2017 Psychiatric No depression 01/16/2017 Constitutional recent illness 08/24/2016 Constitutional No fever 08/24/2016 Constitutional No chills 08/24/2016 Constitutional No diaphoresis 08/24/2016 Eyes No eye erythema 08/24/2016 Ears/Nose/Throat/Neck otalgia 08/24/2016 Ears/Nose/Throat/Neck nasal allergies Ears/Nose/Throat/Neck nasal discharge Cardiovascular No chest pain/pressure Cardiovascular No dyspnea 08/24/2016 Respiratory No dyspnea 08/24/2016 Dermatologic No rash 08/24/2016 Neurologic No alteration of consciousness 08/24/2016 Neurologic No mental status change 2015 Constitutional No recent illness 2015 Constitutional No chills 07/18/2016 Constitutional No fatigue 07/18/2016 Constitutional No fever 07/18/2016 Constitutional No insomnia 07/18/2016 Constitutional No malaise 07/18/2016 Eyes No blindness 07/18/2016 Eyes No vision change 07/18/2016 Ears/Nose/Throat/Neck No dental pain Ears/Nose/Throat/Neck No dizziness 2015 Ears/Nose/Throat/Neck No dysphagia 2015 Ears/Nose/Throat/Neck No headache 2015 Ears/Nose/Throat/Neck No hearing loss Ears/Nose/Throat/Neck No nasal allergies 07/18/2016 Ears/Nose/Throat/Neck No sore throat Ears/Nose/Throat/Neck No postnasal drip 07/18/2016 Ears/Nose/Throat/Neck No sinus congestion 07/18/2016 Cardiovascular No chest pain/pressure Cardiovascular No dyspnea 07/18/2016 Cardiovascular No edema 07/18/2016 Cardiovascular No exercise intolerance Cardiovascular No fatigue 07/18/2016 Cardiovascular No near-syncope/dizziness 07/18/2016 Respiratory No chest tightness 2015 Respiratory No cough 07/18/2016 Respiratory No dyspnea 07/18/2016 Respiratory No pedal edema 07/18/2016 Gastrointestinal No abdominal pain 2015 Gastrointestinal No constipation 2015 Gastrointestinal No diarrhea 07/18/2016 Gastrointestinal No gastroesophageal reflux 07/18/2016 Gastrointestinal No nausea 07/18/2016 Gastrointestinal No vomiting 07/18/2016 Genitourinary/Nephrology No dysuria 07/18 Genitourinary/Nephrology No nocturia Genitourinary/Nephrology No urinary incontinence 07/18/2016 Musculoskeletal No stiffness 07/18/2016 Musculoskeletal No swelling 07/18/2016 Musculoskeletal No muscle weakness 2015 Musculoskeletal No myalgias 07/18/2016 Dermatologic No rash 07/18/2016 Dermatologic No sores 07/18/2016 Dermatologic No scar 07/18/2016 Neurologic No dizziness 07/18/2016 Neurologic No headache 07/18/2016 Neurologic No neck pain 07/18/2016 Neurologic No syncope 07/18/2016 Psychiatric No anxiety 07/18/2016 Psychiatric No depression 07/18/2016 Dermatologic pigmentation change 2015 Cardiovascular palpitations 07/18/2016 Constitutional No recent illness 2015 Constitutional No chills 01/13/2016 Constitutional No fatigue 01/13/2016 Constitutional No fever 01/13/2016 Constitutional No insomnia 01/13/2016 Constitutional No malaise 01/13/2016 Eyes No blindness 01/13/2016 Eyes No vision change 01/13/2016 Ears/Nose/Throat/Neck No dental pain Ears/Nose/Throat/Neck No dizziness 2015 Ears/Nose/Throat/Neck No dysphagia 2015 Ears/Nose/Throat/Neck No headache 2015 Ears/Nose/Throat/Neck No hearing loss Ears/Nose/Throat/Neck No nasal allergies 01/13/2016 Ears/Nose/Throat/Neck No sore throat Ears/Nose/Throat/Neck No postnasal drip 01/13/2016 Ears/Nose/Throat/Neck No sinus congestion 01/13/2016 Cardiovascular No chest pain/pressure Cardiovascular No dyspnea 01/13/2016 Cardiovascular No edema 01/13/2016 Cardiovascular No exercise intolerance Cardiovascular No fatigue 01/13/2016 Cardiovascular No near-syncope/dizziness 01/13/2016 Respiratory No chest tightness 2015 Respiratory No cough 01/13/2016 Respiratory No dyspnea 01/13/2016 Respiratory No pedal edema 01/13/2016 Gastrointestinal No abdominal pain 2015 Gastrointestinal No constipation 2015 Gastrointestinal No diarrhea 01/13/2016 Gastrointestinal No gastroesophageal reflux 01/13/2016 Gastrointestinal No nausea 01/13/2016 Gastrointestinal No vomiting 01/13/2016 Genitourinary/Nephrology No dysuria 01/12 Genitourinary/Nephrology No nocturia Genitourinary/Nephrology No urinary incontinence 01/13/2016 Musculoskeletal No stiffness 01/13/2016 Musculoskeletal No swelling 01/13/2016 Musculoskeletal No muscle weakness 2015 Musculoskeletal No myalgias 01/13/2016 Dermatologic No rash 01/13/2016 Dermatologic No sores 01/13/2016 Dermatologic No scar 01/13/2016 Neurologic No dizziness 01/13/2016 Neurologic No headache 01/13/2016 Neurologic No neck pain 01/13/2016 Neurologic No syncope 01/13/2016 Psychiatric No anxiety 01/13/2016 Psychiatric No depression 01/13/2016 Constitutional No recent illness 2014 Constitutional No chills 07/15/2015 Constitutional No fatigue 07/15/2015 Constitutional No fever 07/15/2015 Constitutional No insomnia 07/15/2015 Constitutional No malaise 07/15/2015 Eyes No blindness 07/15/2015 Eyes No vision change 07/15/2015 Ears/Nose/Throat/Neck No dental pain Ears/Nose/Throat/Neck No dizziness 2014 Ears/Nose/Throat/Neck No dysphagia 2014 Ears/Nose/Throat/Neck No headache 2014 Ears/Nose/Throat/Neck No hearing loss Ears/Nose/Throat/Neck No nasal allergies 07/15/2015 Ears/Nose/Throat/Neck No sore throat Ears/Nose/Throat/Neck No postnasal drip 07/15/2015 Ears/Nose/Throat/Neck No sinus congestion 07/15/2015 Cardiovascular No chest pain/pressure Cardiovascular No dyspnea 07/15/2015 Cardiovascular No edema 07/15/2015 Cardiovascular No exercise intolerance Cardiovascular No fatigue 07/15/2015 Cardiovascular No near-syncope/dizziness 07/15/2015 Respiratory No chest tightness 2014 Respiratory No cough 07/15/2015 Respiratory No dyspnea 07/15/2015 Respiratory No pedal edema 07/15/2015 Gastrointestinal No abdominal pain 2014 Gastrointestinal No constipation 2014 Gastrointestinal No diarrhea 07/15/2015 Gastrointestinal No gastroesophageal reflux 07/15/2015 Gastrointestinal No nausea 07/15/2015 Gastrointestinal No vomiting 07/15/2015 Genitourinary/Nephrology No dysuria 07/15 Genitourinary/Nephrology No nocturia Genitourinary/Nephrology No urinary incontinence 07/15/2015 Musculoskeletal No stiffness 07/15/2015 Musculoskeletal No swelling 07/15/2015 Musculoskeletal No muscle weakness 2014 Musculoskeletal No myalgias 07/15/2015 Dermatologic No rash 07/15/2015 Dermatologic No sores 07/15/2015 Dermatologic No scar 07/15/2015 Neurologic No dizziness 07/15/2015 Neurologic No headache 07/15/2015 Neurologic No neck pain 07/15/2015 Neurologic No syncope 07/15/2015 Psychiatric No anxiety 07/15/2015 Psychiatric No depression 07/15/2015 Physical Exam Exam Name System Name Item Name Status Result Effective Dates Notes Full Exam - ENT Constitutional general appearance Overall: well nourished 11/08/2017 None Full Exam - ENT Constitutional general appearance Overall: well developed 11/08/2017 None Full Exam - ENT Constitutional general appearance Overall: in no acute distress 11/08/2017 None Full Exam - ENT Ears/Nose/Throat otoscopic exam Overall: external auditory canals normal 11/08/2017 None Full Exam - ENT Ears/Nose/Throat otoscopic exam Left tympanic membrane: air -fluid level 11/08/2017 None Full Exam - ENT Ears/Nose/Throat otoscopic exam Right tympanic membrane: air-fluid level 11/08/2017 None Full Exam - ENT Ears/Nose/Throat lips/ teeth/gingiva Overall: benign lips 11/08/2017 None Full Exam - ENT Ears/Nose/Throat oropharynx Overall: oral mucosa clear 11/08/2017 None Full Exam - ENT Ears/Nose/Throat oropharynx Posterior Pharynx: clear post nasal drainage 11/08/2017 None Full Exam - ENT Ears/Nose/Throat oropharynx Posterior Pharynx: erythema 11/08/2017 None Full Exam - ENT Respiratory inspection Overall: no retractions 11/08/2017 None Full Exam - ENT Respiratory inspection Overall: normal rate 08/2018 None Full Exam - ENT Cardiovascular auscultation of heart Rate: normal rate 11/08/2017 None Full Exam - ENT Cardiovascular auscultation of heart Rhythm: regular rhythm 11/08/2017 None Full Exam - ENT Lymphatic palpation of lymph nodes Overall: anterior cervical chain benign 11/08/2017 None Full Exam - ENT Lymphatic palpation of lymph nodes Overall: posterior cervical chain benign 11/08/2017 None Full Exam - ENT Neurologic mood and affect Overall: normal mood 11/08/2017 None Full Exam - ENT Neurologic mood and affect Overall: normal affect 11/08/2017 None Full Exam - ENT Neurologic orientation Overall: oriented to person, place and time 11/08/2017 None Full Exam - ENT Respiratory auscultation Diffuse: diminished None Full Exam - General 1994 Constitutional general appearance Overall: well developed 10/25/2017 None Full Exam - General 1994 Constitutional general appearance Overall: in no acute distress 10/25/2017 None Full Exam - General 1994 Constitutional general appearance Overall: well nourished 10/25/2017 None Full Exam - General 1994 Eyes conjunctiva /eyelids Overall: conjunctiva clear 10/25/2017 None Full Exam - General 1994 Eyes conjunctiva /eyelids Overall: eyelids normal 10/25/2017 None Full Exam - General 1994 Ears/Nose/Throat lips/teeth/gingiva Overall: benign lips 10/25/2017 None Full Exam - General 1994 Respiratory respiratory effort/rhythm Overall: no retractions 10/25/2017 None Full Exam - General 1994 Respiratory respiratory effort/rhythm Overall: normal rate 10/25/2017 None Full Exam - General 1994 Musculoskeletal head and neck Overall: head atraumatic 10/25/2017 None Full Exam - General 1994 Neurologic cranial nerves Overall: crainial nerves 2 - 12 grossly intact 10/25/2017 None Full Exam - General 1994 Psychiatric orientation/consciousness Overall: oriented to person, place and time 10/25/2017 None Full Exam - General 1994 Psychiatric mood and affect Overall: normal mood and affect 10/25/2017 None Full Exam - General 1994 Psychiatric appearance Overall: well-groomed, good eye contact 10/25/2017 None Full Exam - General 1994 Eyes conjunctiva /eyelids Overall: cornea clear 10/25/2017 None Full Exam - General 1994 Eyes pupils and irises Overall: pupils equal, round, reactive to light and accomodation 10/25/2017 None Full Exam - General 1994 Constitutional general appearance Development: well developed 01/16/2017 None Full Exam - General 1994 Constitutional general appearance Development: appears stated age 0301/16/2017 None Full Exam - General 1994 Constitutional general appearance Hygiene/Attention to Grooming: good hygiene 01/16/2017 None Full Exam - General 1994 Eyes conjunctiva /eyelids Overall: conjunctiva clear 01/16/2017 None Full Exam - General 1994 Eyes conjunctiva /eyelids Overall: cornea clear 01/16/2017 None Full Exam - General 1994 Eyes conjunctiva /eyelids Overall: eyelids normal 01/16/2017 None Full Exam - General 1994 Eyes pupils and irises Overall: pupils equal, round, reactive to light and accomodation 01/16/2017 None Full Exam - General 1994 Ears/Nose/Throat otoscopic exam Overall: external auditory canals clear 01/16/2017 None Full Exam - General 1994 Ears/Nose/Throat otoscopic exam Overall: tympanic membranes clear 01/16/2017 None Full Exam - General 1994 Ears/Nose/Throat lips/teeth/gingiva Overall: benign lips 01/16/2017 None Full Exam - General 1994 Ears/Nose/Throat lips/teeth/gingiva Overall: normal dentition 01/16/2017 None Full Exam - General 1994 Ears/Nose/Throat oral cavity/pharynx/larynx Overall: oral mucosa clear 01/16/2017 None Full Exam - General 1994 Ears/Nose/Throat oral cavity/pharynx/larynx Overall: oropharyngeal mucosa clear 01/16/2017 None Full Exam - General 1994 Ears/Nose/Throat oral cavity/pharynx/larynx Overall: hypopharynx benign 01/16/2017 None Full Exam - General 1994 Ears/Nose/Throat oral cavity/pharynx/larynx Overall: no masses 01/16/2017 None Full Exam - General 1994 Respiratory auscultation Overall: breath sounds clear bilaterally 01/16/2017 None Full Exam - General 1994 Respiratory respiratory effort/rhythm Overall: no retractions 01/16/2017 None Full Exam - General 1994 Respiratory respiratory effort/rhythm Overall: normal rate 01/16/2017 None Full Exam - General 1994 Cardiovascular extremities Overall: no clubbing 01/16/2017 None Full Exam - General 1994 Cardiovascular auscultation of heart Overall: regular rate 01/16/2017 None Full Exam - General 1994 Cardiovascular auscultation of heart Overall: normal heart sounds 01/16/2017 None Full Exam - General 1994 Abdomen abdominal exam Overall: no tenderness 01/16/2017 None Full Exam - General 1994 Abdomen abdominal exam Overall: normal bowel sounds 01/16/2017 None Full Exam - General 1994 Musculoskeletal spine, ribs and pelvis Overall: spine benign 01/16/2017 None Full Exam - General 1994 Musculoskeletal spine, ribs and pelvis Overall: sacroiliac joint benign 01/16/2017 None Full Exam - General 1994 Musculoskeletal spine, ribs and pelvis Overall: good posture 01/16/2017 None Full Exam - General 1994 Musculoskeletal head and neck Overall: head atraumatic 01/16/2017 None Full Exam - General 1994 Musculoskeletal head and neck Overall: cervical spine benign 01/16/2017 None Full Exam - General 1994 Integument inspection of skin Pigmentation: ecchymosis 01/16/2017 on legs Full Exam - General 1994 Neurologic deep tendon reflexes Overall: deep tendon reflexes intact 01/16/2017 None Full Exam - General 1994 Neurologic cranial nerves Overall: crainial nerves 2 - 12 grossly intact 01/16/2017 None Full Exam - General 1994 Psychiatric orientation/consciousness Overall: oriented to person, place and time 01/16/2017 None Full Exam - General 1994 Psychiatric mood and affect Overall: normal mood and affect 01/16/2017 None Full Exam - ENT Constitutional general appearance Overall: well nourished 08/24/2016 None Full Exam - ENT Constitutional general appearance Overall: well developed 08/24/2016 None Full Exam - ENT Constitutional general appearance Overall: in no acute distress 08/24/2016 None Full Exam - ENT Ears/Nose/Throat otoscopic exam Left external auditory canal: minimal cerumen 08/24/2016 None Full Exam - ENT Ears/Nose/Throat otoscopic exam Right external auditory canal: tender 08/24/2016 None Full Exam - ENT Ears/Nose/Throat otoscopic exam Right external auditory canal: erythematous 08/24/2016 None Full Exam - ENT Ears/Nose/Throat otoscopic exam Right external auditory canal: edematous 08/24/2016 None Full Exam - ENT Ears/Nose/Throat otoscopic exam Right external auditory canal: drainage 08/24/2016 None Full Exam - ENT Ears/Nose/Throat otoscopic exam Left tympanic membrane: intact 08/24/2016 None Full Exam - ENT Ears/Nose/Throat otoscopic exam Left tympanic membrane: mobile 08/24/2016 None Full Exam - ENT Ears/Nose/Throat otoscopic exam Right tympanic membrane: bulging 08/24/2016 None Full Exam - ENT Ears/Nose/Throat otoscopic exam Right tympanic membrane: erythematous 08/24/2016 None Full Exam - ENT Ears/Nose/Throat lips/ teeth/gingiva Overall: benign lips 08/24/2016 None Full Exam - ENT Ears/Nose/Throat oropharynx Overall: oral mucosa clear 08/24/2016 None Full Exam - ENT Ears/Nose/Throat oropharynx Posterior Pharynx: clear post nasal drainage 08/24/2016 None Full Exam - ENT Respiratory auscultation Overall: breath sounds clear bilaterally 08/24/2016 None Full Exam - ENT Respiratory inspection Overall: no retractions 08/24/2016 None Full Exam - ENT Respiratory inspection Overall: normal rate None Full Exam - ENT Face and Head palpation Right maxillary sinus: tender 08/24/2016 None Full Exam - ENT Face and Head palpation Left maxillary sinus: tender 08/24/2016 None Full Exam - ENT Cardiovascular auscultation of heart Overall: regular rate 08/24/2016 None Full Exam - ENT Cardiovascular auscultation of heart Overall: normal heart sounds 08/24/2016 None Full Exam - ENT Lymphatic palpation of lymph nodes Overall: shotty lymphadenopathy 08/24/2016 None Full Exam - ENT Neurologic mood and affect Overall: normal mood 08/24/2016 None Full Exam - ENT Neurologic mood and affect Overall: normal affect 08/24/2016 None Full Exam - ENT Neurologic orientation Overall: oriented to person, place and time 08/24/2016 None Full Exam - General 1994 Constitutional general appearance Development: well developed 07/18/2016 None Full Exam - General 1994 Constitutional general appearance Development: appears stated age 0907/18/2016 None Full Exam - General 1994 Constitutional general appearance Hygiene/Attention to Grooming: good hygiene 07/18/2016 None Full Exam - General 1994 Eyes conjunctiva /eyelids Overall: conjunctiva clear 07/18/2016 None Full Exam - General 1994 Eyes conjunctiva /eyelids Overall: cornea clear 07/18/2016 None Full Exam - General 1994 Eyes conjunctiva /eyelids Overall: eyelids normal 07/18/2016 None Full Exam - General 1994 Eyes pupils and irises Overall: pupils equal, round, reactive to light and accomodation 07/18/2016 None Full Exam - General 1994 Ears/Nose/Throat otoscopic exam Overall: external auditory canals clear 07/18/2016 None Full Exam - General 1994 Ears/Nose/Throat otoscopic exam Overall: tympanic membranes clear 07/18/2016 None Full Exam - General 1994 Ears/Nose/Throat lips/teeth/gingiva Overall: benign lips 07/18/2016 None Full Exam - General 1994 Ears/Nose/Throat lips/teeth/gingiva Overall: normal dentition 07/18/2016 None Full Exam - General 1994 Ears/Nose/Throat oral cavity/pharynx/larynx Overall: oral mucosa clear 07/18/2016 None Full Exam - General 1994 Ears/Nose/Throat oral cavity/pharynx/larynx Overall: oropharyngeal mucosa clear 07/18/2016 None Full Exam - General 1994 Ears/Nose/Throat oral cavity/pharynx/larynx Overall: hypopharynx benign 07/18/2016 None Full Exam - General 1994 Ears/Nose/Throat oral cavity/pharynx/larynx Overall: no masses 07/18/2016 None Full Exam - General 1994 Respiratory auscultation Overall: breath sounds clear bilaterally 07/18/2016 None Full Exam - General 1994 Respiratory respiratory effort/rhythm Overall: no retractions 07/18/2016 None Full Exam - General 1994 Respiratory respiratory effort/rhythm Overall: normal rate 07/18/2016 None Full Exam - General 1994 Cardiovascular extremities Overall: no clubbing 07/18/2016 None Full Exam - General 1994 Cardiovascular auscultation of heart Overall: regular rate 07/18/2016 None Full Exam - General 1994 Cardiovascular auscultation of heart Overall: normal heart sounds 07/18/2016 None Full Exam - General 1994 Abdomen abdominal exam Overall: no tenderness 07/18/2016 None Full Exam - General 1994 Abdomen abdominal exam Overall: normal bowel sounds 07/18/2016 None Full Exam - General 1994 Musculoskeletal spine, ribs and pelvis Overall: spine benign 07/18/2016 None Full Exam - General 1994 Musculoskeletal spine, ribs and pelvis Overall: sacroiliac joint benign 07/18/2016 None Full Exam - General 1994 Musculoskeletal spine, ribs and pelvis Overall: good posture 07/18/2016 None Full Exam - General 1994 Musculoskeletal head and neck Overall: head atraumatic 07/18/2016 None Full Exam - General 1994 Musculoskeletal head and neck Overall: cervical spine benign 07/18/2016 None Full Exam - General 1994 Neurologic deep tendon reflexes Overall: deep tendon reflexes intact 07/18/2016 None Full Exam - General 1994 Neurologic cranial nerves Overall: crainial nerves 2 - 12 grossly intact 07/18/2016 None Full Exam - General 1994 Psychiatric orientation/consciousness Overall: oriented to person, place and time 07/18/2016 None Full Exam - General 1994 Psychiatric mood and affect Overall: normal mood and affect 07/18/2016 None Full Exam - General 1994 Integument inspection of skin Pigmentation: ecchymosis 07/18/2016 on legs Full Exam - General 1994 Constitutional general appearance Development: well developed 01/13/2016 None Full Exam - General 1994 Constitutional general appearance Development: appears stated age 0301/13/2016 None Full Exam - General 1994 Constitutional general appearance Hygiene/Attention to Grooming: good hygiene 01/13/2016 None Full Exam - General 1994 Eyes conjunctiva /eyelids Overall: conjunctiva clear 01/13/2016 None Full Exam - General 1994 Eyes conjunctiva /eyelids Overall: cornea clear 01/13/2016 None Full Exam - General 1994 Eyes conjunctiva /eyelids Overall: eyelids normal 01/13/2016 None Full Exam - General 1994 Eyes pupils and irises Overall: pupils equal, round, reactive to light and accomodation 01/13/2016 None Full Exam - General 1994 Ears/Nose/Throat otoscopic exam Overall: external auditory canals clear 01/13/2016 None Full Exam - General 1994 Ears/Nose/Throat otoscopic exam Overall: tympanic membranes clear 01/13/2016 None Full Exam - General 1994 Ears/Nose/Throat lips/teeth/gingiva Overall: benign lips 01/13/2016 None Full Exam - General 1994 Ears/Nose/Throat lips/teeth/gingiva Overall: normal dentition 01/13/2016 None Full Exam - General 1994 Ears/Nose/Throat oral cavity/pharynx/larynx Overall: oral mucosa clear 01/13/2016 None Full Exam - General 1994 Ears/Nose/Throat oral cavity/pharynx/larynx Overall: oropharyngeal mucosa clear 01/13/2016 None Full Exam - General 1994 Ears/Nose/Throat oral cavity/pharynx/larynx Overall: hypopharynx benign 01/13/2016 None Full Exam - General 1994 Ears/Nose/Throat oral cavity/pharynx/larynx Overall: no masses 01/13/2016 None Full Exam - General 1994 Respiratory auscultation Overall: breath sounds clear bilaterally 01/13/2016 None Full Exam - General 1994 Respiratory respiratory effort/rhythm Overall: no retractions 01/13/2016 None Full Exam - General 1994 Respiratory respiratory effort/rhythm Overall: normal rate 01/13/2016 None Full Exam - General 1994 Cardiovascular extremities Overall: no clubbing 01/13/2016 None Full Exam - General 1994 Cardiovascular auscultation of heart Overall: regular rate 01/13/2016 None Full Exam - General 1994 Cardiovascular auscultation of heart Overall: normal heart sounds 01/13/2016 None Full Exam - General 1994 Abdomen abdominal exam Overall: no tenderness 01/13/2016 None Full Exam - General 1994 Abdomen abdominal exam Overall: normal bowel sounds 01/13/2016 None Full Exam - General 1994 Lymphatic neck nodes Overall: anterior cervical chain benign 01/13/2016 None Full Exam - General 1994 Lymphatic neck nodes Overall: posterior cervical chain benign 01/13/2016 None Full Exam - General 1994 Musculoskeletal spine, ribs and pelvis Overall: spine benign 01/13/2016 None Full Exam - General 1994 Musculoskeletal spine, ribs and pelvis Overall: sacroiliac joint benign 01/13/2016 None Full Exam - General 1994 Musculoskeletal spine, ribs and pelvis Overall: good posture 01/13/2016 None Full Exam - General 1994 Musculoskeletal head and neck Overall: head atraumatic 01/13/2016 None Full Exam - General 1994 Musculoskeletal head and neck Overall: cervical spine benign 01/13/2016 None Full Exam - General 1994 Integument inspection of skin Overall: few scattered moles, no gross abnormalities 01/13/2016 None Full Exam - General 1994 Neurologic deep tendon reflexes Overall: deep tendon reflexes intact 01/13/2016 None Full Exam - General 1994 Neurologic cranial nerves Overall: crainial nerves 2 - 12 grossly intact 01/13/2016 None Full Exam - General 1994 Psychiatric orientation/consciousness Overall: oriented to person, place and time 01/13/2016 None Full Exam - General 1994 Psychiatric mood and affect Overall: normal mood and affect 01/13/2016 None Full Exam - General 1994 Constitutional general appearance Development: well developed 07/15/2015 None Full Exam - General 1994 Constitutional general appearance Development: appears stated age 0907/15/2015 None Full Exam - General 1994 Constitutional general appearance Hygiene/Attention to Grooming: good hygiene 07/15/2015 None Full Exam - General 1994 Eyes conjunctiva /eyelids Overall: conjunctiva clear 07/15/2015 None Full Exam - General 1994 Eyes conjunctiva /eyelids Overall: cornea clear 07/15/2015 None Full Exam - General 1994 Eyes conjunctiva /eyelids Overall: eyelids normal 07/15/2015 None Full Exam - General 1994 Eyes pupils and irises Overall: pupils equal, round, reactive to light and accomodation 07/15/2015 None Full Exam - General 1994 Ears/Nose/Throat otoscopic exam Overall: external auditory canals clear 07/15/2015 None Full Exam - General 1994 Ears/Nose/Throat otoscopic exam Overall: tympanic membranes clear 07/15/2015 None Full Exam - General 1994 Ears/Nose/Throat lips/teeth/gingiva Overall: benign lips 07/15/2015 None Full Exam - General 1994 Ears/Nose/Throat lips/teeth/gingiva Overall: normal dentition 07/15/2015 None Full Exam - General 1994 Ears/Nose/Throat oral cavity/pharynx/larynx Overall: oral mucosa clear 07/15/2015 None Full Exam - General 1994 Ears/Nose/Throat oral cavity/pharynx/larynx Overall: oropharyngeal mucosa clear 07/15/2015 None Full Exam - General 1994 Ears/Nose/Throat oral cavity/pharynx/larynx Overall: hypopharynx benign 07/15/2015 None Full Exam - General 1994 Ears/Nose/Throat oral cavity/pharynx/larynx Overall: no masses 07/15/2015 None Full Exam - General 1994 Respiratory auscultation Overall: breath sounds clear bilaterally 07/15/2015 None Full Exam - General 1994 Respiratory respiratory effort/rhythm Overall: no retractions 07/15/2015 None Full Exam - General 1994 Respiratory respiratory effort/rhythm Overall: normal rate 07/15/2015 None Full Exam - General 1994 Cardiovascular extremities Overall: no clubbing 07/15/2015 None Full Exam - General 1994 Cardiovascular auscultation of heart Overall: regular rate 07/15/2015 None Full Exam - General 1994 Cardiovascular auscultation of heart Overall: normal heart sounds 07/15/2015 None Full Exam - General 1994 Abdomen abdominal exam Overall: no tenderness 07/15/2015 None Full Exam - General 1994 Abdomen abdominal exam Overall: normal bowel sounds 07/15/2015 None Full Exam - General 1994 Lymphatic neck nodes Overall: anterior cervical chain benign 07/15/2015 None Full Exam - General 1994 Lymphatic neck nodes Overall: posterior cervical chain benign 07/15/2015 None Full Exam - General 1994 Musculoskeletal spine, ribs and pelvis Overall: spine benign 07/15/2015 None Full Exam - General 1994 Musculoskeletal spine, ribs and pelvis Overall: sacroiliac joint benign 07/15/2015 None Full Exam - General 1994 Musculoskeletal spine, ribs and pelvis Overall: good posture 07/15/2015 None Full Exam - General 1994 Musculoskeletal head and neck Overall: head atraumatic 07/15/2015 None Full Exam - General 1994 Musculoskeletal head and neck Overall: cervical spine benign 07/15/2015 None Full Exam - General 1994 Integument inspection of skin Overall: few scattered moles, no gross abnormalities 07/15/2015 None Full Exam - General 1994 Neurologic deep tendon reflexes Overall: deep tendon reflexes intact 07/15/2015 None Full Exam - General 1994 Neurologic cranial nerves Overall: crainial nerves 2 - 12 grossly intact 07/15/2015 None Full Exam - General 1994 Psychiatric orientation/consciousness Overall: oriented to person, place and time 07/15/2015 None Full Exam - General 1994 Psychiatric mood and affect Overall: normal mood and affect 07/15/2015 None Procedures Procedure Codes Date THER/PROPH/DIAG INJ SC/IM CPT-4: 95020 11/08/2017 TRIAMCINOLONE ACET INJ NOS CPT-4: J3301 11/08/2017 PPPS, SUBSEQ VISIT CPT -4: G0439 10/25/2017 Vital Signs Date Vital 11/08/2017 Blood Pressure 1: 130/68 Code : 8480-6 BMI: 22.7 Code : 57634-6 Heart Rate 1 : 96 bpm Height: 5'8" SpO2: 94% Temperature: 36.6 (C) / 97.9 (F) Weight: 149 lbs 10/25/2017 Blood Pressure 1: 128/74 Code : 8480-6 BMI: 23.7 Code : 84035-7 Heart Rate 1 : 69 bpm Height: 5'8" SpO2: 98% Waist Measure (cm): 91 cm Weight: 156 lbs 01/16/2017 Blood Pressure 1: 128/76 Code : 8480-6 BMI: 24.3 Code : 10205-6 Heart Rate 1 : 64 bpm Height: 5'8" SpO2: 98% Weight: 160 lbs 08/24/2016 Blood Pressure 1: 130/72 Code : 8480-6 BMI: 23.3 Code : 80069-4 Heart Rate 1 : 90 bpm Height: 5'8" SpO2: 97% Weight: 153 lbs 07/18/2016 Blood Pressure 1: 138/82 Code : 8480-6 BMI: 23.6 Code : 91649-3 Heart Rate 1 : 67 bpm Height: 5'8" SpO2: 98% Weight: 155 lbs 01/13/2016 Blood Pressure 1: 128/70 Code : 8480-6 BMI: 24.2 Code : 28946-5 Heart Rate 1 : 78 bpm Height: 5'8" SpO2: 98% Weight: 159 lbs 07/15/2015 Blood Pressure 1: 130/70 Code : 8480-6 BMI: 24.5 Code : 00282-9 Heart Rate 1 : 71 bpm Height: 5'8" SpO2: 98% Weight: 161 lbs Functional Status No Functional Status data History of Present Illness Symptom Name Status Result Effective Date Notes cough Pertinent Findings Denies nasal congestion 11/08/2017 None cough Pertinent Findings Denies post nasal drip 11/08/2017 None cough Pertinent Findings fever 11/08/2017 on Sunday of 102 cough Pertinent Findings Denies chills 11/08/2017 None cough Pertinent Findings nausea 11/08/2017 from the coughing cough Pertinent Findings vomiting 11/08/2017 from the coughing cough Quality acute None cough Quality intermittent 11/08/2017 None cough Onset and Resolution sudden in onset 11/08/2017 None cough Onset of Symptom 5 days ago 11/08/2017 None cough Frequency of Episodes daily 11/08/2017 None Annual Medicare Wellness Exam Alcohol Use drinks 3 days per week 10/25/2017 None Annual Medicare Wellness Exam Alcohol Use drinks 1 drinks per day 10/25/2017 None Annual Medicare Wellness Exam Alcohol Use more than 5 drinks on one occasion no 10/25/2017 None Annual Medicare Wellness Exam Aspirin Use yes 10/25/2017 None Annual Medicare Wellness Exam Blood Glucose (self reported) desireable (below 100) 10/25/2017 None Annual Medicare Wellness Exam Blood Pressure (self reported ) low / normal (120/80) 10/25/2017 None Annual Medicare Wellness Exam Cholesterol (self reported) borderline high (200-239) 10/25/2017 None Annual Medicare Wellness Exam Hemaglobin A-1C (self reported ) desireable (6 or lower) 10/25/2017 None Annual Medicare Wellness Exam Depression (last 6 months) some of the time 10/25/2017 None Annual Medicare Wellness Exam Depression or Hopelessness daily 10/25/2017 None Annual Medicare Wellness Exam Describe Your Health very good 10/25/2017 None Annual Medicare Wellness Exam Exercise Habits exercises 3 days per week 10/25/2017 None Annual Medicare Wellness Exam Exercise Habits exercises 20-25 minutes per day 10/25/2017 None Annual Medicare Wellness Exam Handling Stress often has problems coping 10/25/2017 None Annual Medicare Wellness Exam Hours of Sleep 5-6 10/25/2017 None Annual Medicare Wellness Exam Interaction with Friends no 10/25/2017 None Annual Medicare Wellness Exam Interests & Pleasure some of the time 10/25/2017 None Annual Medicare Wellness Exam Life Satisfaction satisfied 10/25/2017 None Annual Medicare Wellness Exam Motor Vehicle Safety always fastens seat belt: yes 10/25/2017 None Annual Medicare Wellness Exam Motor Vehicle Safety drives after drinking: no 10/25/2017 None Annual Medicare Wellness Exam Motor Vehicle Safety rides with someone who has been drinking: no 10/25 None Annual Medicare Wellness Exam Nutrition servings of fried food / high fat foods per day: 0.5 2016 None Annual Medicare Wellness Exam Nutrition servings of high fiber / whole grain per day: 1 10/25/2017 None Annual Medicare Wellness Exam Nutrition servings of vegetables / fruit per day: 1 10/25/2017 None Annual Medicare Wellness Exam Smoking and Tobacco Use non smoker 10/25/2017 None Annual Medicare Wellness Exam Social & Emotional Support usually 10/25/2017 None Annual Medicare Wellness Exam Stress some of the time 10/25/2017 None Annual Medicare Wellness Exam Sun Exposure protects skin when outdoors: yes 10/25/2017 None gastroesophageal reflux Quality stable 01/16/2017 None gastroesophageal reflux Onset and Resolution ongoing 01/16/2017 None gastroesophageal reflux Onset of Symptom during adulthood 01/16/2017 None gastroesophageal reflux Alleviating Factors proton pump inhibitor 01/16/2017 None earache Onset and Resolution sudden in onset 08/24/2016 None earache Location both ears 08/24/2016 None earache Onset of Symptom 1 days ago 08/24/2016 None earache Frequency of Episodes daily 08/24/2016 None sinus congestion Location on both sides 08/24/2016 None sinus congestion Quality fullness 08/24/2016 None sinus congestion Quality pain 08/24/2016 None sinus congestion Quality pressure 08/24/2016 None sinus congestion Onset and Resolution sudden in onset 08/24/2016 None sinus congestion Onset of Symptom 4 days ago 08/24/2016 None sinus congestion Frequency of Episodes daily 08/24/2016 None sinus congestion Pertinent Findings hoarseness 08/24/2016 None arthralgia(s) Location diffusely 07/18/2016 None arthralgia(s) Quality aching 07/18/2016 in the hands arthralgia(s) Onset and Resolution ongoing 07/18/2016 None abnormal bleeding and bruising Location on the left leg 07/18/2016 None abnormal bleeding and bruising Quality acute 07/18/2016 None abnormal bleeding and bruising Onset and Resolution sudden in onset 07/18/2016 None abnormal bleeding and bruising Onset of Symptom 4 days ago 07/18/2016 None abnormal bleeding and bruising Triggers trauma 07/18/2016 None arthralgia(s) Location diffusely 01/13/2016 None arthralgia(s) Quality aching 01/13/2016 in the hands arthralgia(s) Onset and Resolution ongoing 01/13/2016 None arthralgia(s) Location diffusely 07/15/2015 None arthralgia(s) Quality aching 07/15/2015 None arthralgia(s) Onset and Resolution ongoing 07/15/2015 None Advance Directives No Advance Directive data Encounters Encounter Performer Location Codes Date 84170 EST. PATIENT, LEVEL III Diagnosis: Acute laryngopharyngitis[ICD10: J06.0] Diagnosis: Other allergic rhinitis[ICD10: J30.89] Pallavi Dahl MD, [facility] CPT-4: 82927 11/08/2017 ([id number]) 54388 EST. PATIENT, LEVEL IV Diagnosis: Pleurodynia[ICD10: R07.81] Diagnosis: Encounter for screening mammogram for malignant neoplasm of breast[ ICD10: Z12.31] Diagnosis: Gastro-esophageal reflux disease without esophagitis[ICD10: K21.9] Faith Dahl MD, [facility] CPT-4: 74082 01/16/2017 67973 EST. PATIENT, LEVEL IV Diagnosis: Other infective otitis externa, right ear[ICD10: H60.391] Diagnosis: Acute suppurative otitis media without spontaneous rupture of ear drum, right ear[ICD10: H66.001] Pallavi Dahl MD, [facility] CPT-4: 53866 08/24/2016 ([id number]) 46968 EST. PATIENT, LEVEL IV Diagnosis: Gastro-esophageal reflux disease without esophagitis[ICD10: K21.9] Diagnosis: Palpitations[ICD10: R00.2] Faith Dahl MD, [facility] CPT- 4: 56768 07/18/2016 ([id number]) 54237 EST. PATIENT, LEVEL IV Diagnosis: Gastro-esophageal reflux disease without esophagitis[ICD10: K21.9] Diagnosis: Osteoarthritis, unspecified site[ICD10: M19.9] Diagnosis: Vitamin D deficiency, unspecified[ICD10: E55.9] Faith Dahl MD, [facility] CPT-4: 77843 01/13/2016 ([id number]) OFFICE VISIT, NEW - LEVEL 4 Diagnosis: Osteopenia[ICD9: 733.90] Diagnosis: Vitamin D deficiency[ICD9: 268.9] Diagnosis: Osteoarthritis[ICD9: 715.90] Diagnosis: ESOPHAGEAL REFLUX[ICD9: 530.81] Faith Dahl MD, [facility] CPT- 4: 82736 07/15/2015 Plan of Care Planned Activity Notes Codes Status Date Visit Plan: URI - Pt advised to increase fluids, vitamin C. Discussed natural and expected course of this diagnosis and need to alert me if symptoms do not follow expected course, or if any worse. RX sent to patient' s pharmacy. Allergies - chronic - recommended pt to use allergy medication as prescribed. Pt has been counseled as to the appropriate use of the medication. Pt to call if allergy symptoms are not controlled with the medication. If using nasal spray, instructions as follows: Nasal spray- use twice daily, one spray per nostril twice daily, after 30 minutes, rinse out nose with saline spray.. Use opposite hand per nostril to spray in the nasal steroid allergy spray. 11/08/2017 Appointment: [facility]el[phone] [facility] (30 min) [facility] 11/08/2017 Patient Education: Patient Medication Summary Completed 11/08/2017 Visit Plan: Medicare Exam - today we discussed the patients past history, immunizations, preventative exams/evaluations - colonoscopy, fecal occult blood testing, routine labs for renal function, glucose, cholesterol, osteoporosis evaluations, cardiovascular testing and cancer screenings. We have also discussed mental health and the signs/symptoms of depression. The patient was advised of home safety evaluations and the need to make sure that as the aging process continues, we need to be aware of different ways to make the home a safer place to reside. The patient has also been counseled that exercise is necessary - and of utmost importance as we age to help decrease fall risk and to maintain independece in the home. Today we discussed the need for the patient to create paperwork for Advanced directives as well as for the patient to provide this office with a copy of her DOPA paperwork for health care surrogate. 10/25/2017 Appointment: Pall[facility]ier [facility]Ptel[phone] [facility] [facility] - Annual Wellness Visit 10/25/2017 Patient Education: Patient Medication Summary Completed 10/25/2017 Care Plan: Comp Metabolic Approved 10/25/2017 Care Plan: Tsh Approved 10/25/2017 Care Plan: Cbc With Differential Approved 10/25/2017 Care Plan: Vitamin D 25 Oh Approved 10/25/2017 Visit Plan: Pleurodynia - otc ibuprofen - call if symptoms not improving. Esophageal Reflux - the patient has been counseled against excessive intake of caffeine, spicy foods, peppermint, and cinnamon - all of which can exacerbate esophageal reflux. The patient is to take medications as prescribed and call the office if the symptoms are not improving. 01/16/2017 Appointment: Faith Dahl WPtel: [phone] [facility] (15 min) Moderate 01/16/2017 Patient Education: Patient Medication Summary Completed 01/16/2017 Care Plan: CHEST X-RAY 2VW FRONTAL&LATL LOINC : 40773-9 Pending 01/16/2017 Visit Plan: Otitis Media - discussed the diagnosis with the patient, script sent electronically to the pharmacy for treatment of the infection. The disease course was discussed and the need to notify the clinic if symptoms do not improve or if they acutely worsen. Otitis Externa - pt given RX for antibiotic drops for the use in pt's affected ear. Pt to call if symptoms are not improving or if symptoms worsen acutely. 08/24/2016 Appointment: Pallavi Meier WPtel: [phone] [facility] (15 min) Moderate 08/24/2016 Patient Education: Patient Medication Summary Completed 08/24/2016 Visit Plan: Hypertension - well controlled - continue with current medications, continue with no added salt diet. Pt has been encouraged to exercise daily. The pt has been advised to call the office if there are any acute concerns about change in blood pressure readings at home. Reflux - change the omeprazole to evening/right before bed - see if this helps to decrease the palpitation sensations you are having in the late evening hours. 07/18/2016 App[facility]ment: [facility]el[phone] ([facility] min) Moderate 07/18/2016 Patient Education: Patient Medication Summary Completed 07/18/2016 Visit Plan: Esophageal Reflux - the patient has been counseled against excessive intake of caffeine, spicy foods, peppermint, and cinnamon - all of which can exacerbate esophageal reflux. The patient is to take medications as prescribed and call the office if the symptoms are not improving. Arthritis- occasionally uncontrolled symptoms- recommend pt to take antiinflammatory as directed for pain control. Use tylenol for break through pain symptoms. 01/13/2016 Appointment: Faith Dahl WPtel: [phone] [facility] (15 min) Moderate 01/13/2016 Patient Education: Patient Medication Summary Completed 01/13/2016 Visit Plan: Osteoporosis - continue with vitamin d and increase calcium in diet Arthritis- occasionally uncontrolled symptoms- recommend pt to take antiinflammatory as directed for pain control. Use tylenol for break through pain symptoms. Esophageal Reflux - the patient has been counseled against excessive intake of caffeine, spicy foods, peppermint, and cinnamon - all of which can exacerbate esophageal reflux. The patient is to take medications as prescribed and call the office if the symptoms are not improving. 07/15/2015 Appointment: Faith Dahl WPtel: [facility] [place] [facility] New Patient 07/15/2015 Patient Education: Patient Medication Summary Completed 07/15/2015 Instructions Comment . Esophageal Reflux - the patient has been counseled against excessive intake of caffeine, spicy foods, peppermint, and cinnamon - all of which can exacerbate esophageal reflux. The patient is to take medications as prescribed and call the office if the symptoms are not improving. Arthritis- occasionally uncontrolled symptoms- recommend pt to take antiinflammatory as directed for pain control. Use tylenol for break through pain symptoms. . Osteoporosis - continue with vitamin d and increase calcium in diet Arthritis- occasionally uncontrolled symptoms- recommend pt to take antiinflammatory as directed for pain control. Use tylenol for break through pain symptoms. Esophageal Reflux - the patient has been counseled against excessive intake of caffeine, spicy foods, peppermint, and cinnamon - all of which can exacerbate esophageal reflux. The patient is to take medications as prescribed and call the office if the symptoms are not improving. change the omeprazole to evening/right before bed - see if this helps to decrease the palpitation sensations you are having in the late evening hours. . Hypertension - well controlled - continue with current medications, continue with no added salt diet. Pt has been encouraged to exercise daily. The pt has been advised to call the office if there are any acute concerns about change in blood pressure readings at home. Reflux - change the omeprazole to evening/right before bed - see if this helps to decrease the palpitation sensations you are having in the late evening hours. . Pleurodynia - otc ibuprofen - call if symptoms not improving. Esophageal Reflux - the patient has been counseled against excessive intake of caffeine, spicy foods, peppermint, and cinnamon - all of which can exacerbate esophageal reflux. The patient is to take medications as prescribed and call the office if the symptoms are not improving. . Medicare Exam - today we discussed the patients past history, immunizations, preventative exams/evaluations - colonoscopy, fecal occult blood testing, routine labs for renal function, glucose, cholesterol, osteoporosis evaluations, cardiovascular testing and cancer screenings. We have also discussed mental health and the signs/symptoms of depression. The patient was advised of home safety evaluations and the need to make sure that as the aging process continues, we need to be aware of different ways to make the home a safer place to reside. The patient has also been counseled that exercise is necessary - and of utmost importance as we age to help decrease fall risk and to maintain independece in the home. Today we discussed the need for the patient to create paperwork for Advanced directives as well as for the patient to provide this office with a copy of her DOPA paperwork for health care surrogate. . URI - Pt advised to increase fluids, vitamin C. Discussed natural and expected course of this diagnosis and need to alert me if symptoms do not follow expected course, or if any worse. RX sent to patient's pharmacy. Allergies - chronic - recommended pt to use allergy medication as prescribed. Pt has been counseled as to the appropriate use of the medication. Pt to call if allergy symptoms are not controlled with the medication. If using nasal spray, instructions as follows: Nasal spray- use twice daily, one spray per nostril twice daily, after 30 minutes, rinse out nose with saline spray.. Use opposite hand per nostril to spray in the nasal steroid allergy spray. [facility] or [facility] . Otitis Media - discussed the diagnosis with the patient, script sent electronically to the pharmacy for treatment of the infection. The disease course was discussed and the need to notify the clinic if symptoms do not improve or if they acutely worsen. Otitis Externa - pt given RX for antibiotic drops for the use in pt's affected ear. Pt to call if symptoms are not improving or if symptoms worsen acutely.
--- OUTSIDE RECORDS SUMMARY | 2018-07-02 21:58 | XMS REPORT | Continuity of Care Document ---
Author Author [facility] Organization [facility] Address Unknown Phone Unavailable Allergies Active Description Code Type Severity Reaction Onset Reported/Identified Relationship to Patient Clinical Status Yes thiopental [id number] Drug Allergy Unknown N/A 05/27/2007 Medications There is no data. 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 05/28/2012 Ot 053.19 H ZOSTER NERV SYST NEC 05/28/2012 Ot 401.9 HYPERTENSION NOS 05/28/2012 Ot 427.89 CARDIAC DYSRHYTHMIAS NEC 05/28/2012 Ot 786.59 CHEST PAIN NEC 01/26/2013 Ot 285.9 ANEMIA NOS 01/26/2013 Ot 401.9 HYPERTENSION NOS 01/26/2013 Ot 424.0 MITRAL VALVE DISORDER 01/26/2013 Ot 530.81 ESOPHAGEAL REFLUX 01/26/2013 Ot 715.36 LOC OSTEOARTH NOS-L/LEG 02/17/2014 BABATUNDE PHILLIP MD Ot 562.10 DIVERTICULOSIS COLON (W/O MENT OF HEMORR 02/17/2014 BABATUNDE PHILLIP MD Ot 569.84 ANGIODYSPLASIA INTESTINE (W/O MENT OF HE 02/17/2014 BABATUNDE PHILLIP MD Ot V12.72 PERSONAL HISTORY OF COLONIC POLYPS 02/17/2014 BABATUNDE PHILLIP MD Ot V16.0 FAMILY HX-GI MALIGNANCY 02/17/2014 BABATUNDE PHILLIP MD Ot V76.51 SCREEN MAL NEOP-COLON 05/07/2015 PEPE BASURTO FACC, ALI FACP CCDS Ot 424.0 05/07/2015 PEPE BASURTO FACC, ALI FACP CCDS Ot 719.41 05/07/2015 PEPE BASURTO FACC, ALI FACP CCDS Ot 785.1 05/07/2015 PEPE BASURTO FACC, ALI FACP CCDS Ot 786.59 05/14/2015 PEPE BASURTO FACC, ALI FACP CCDS Ot 424.0 05/14/2015 PEPE BASURTO FAC, CHARY FACP CCDS Ot 719.41 05/14/2015 PEPE BASURTO FAC, ALI FACP CCDS Ot 785.1 05/14/2015 PEPE BASURTO FAC, CHARY FACP CCDS Ot 786.59 08/11/2015 HIGINIO OQUENDO MD Ot V76.12 05/15/2016 Ot 729.81 SWELLING OF LIMB 05/15/2016 Ot 796.4 ABN CLINICAL FINDING NEC 05/15/2016 Ot V76.12 OTH SCREEN MAMMO-MALIGN NEOPLASM OF [place] 05/15/2016 Ot 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 05/15/2016 Ot V72.84 EXAM PRE- OPERATIVE NOS 05/15/2016 Ot V74.8 SCREEN- BACTERIAL DIS NEC 05/15/2016 Ot 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 05/15/2016 Ot 397.0 TRICUSPID VALVE DISEASE 05/15/2016 Ot V76.12 OTH SCREEN MAMMO-MALIGN NEOPLASM OF [place] 05/15/2016 Ot 715.36 LOC OSTEOARTH NOS-L/LEG 05/15/2016 Ot 791.9 ABN URINE FINDINGS NEC 05/15/2016 Ot V57.1 PHYSICAL THERAPY NEC 05/15/2016 Ot V57.21 ENCOUNTER FOR OCCUPATIONAL THERAPY 05/15/2016 Ot V72.63 PRE- PROCEDURAL LABORATORY EXAMINATION 05/15/2016 Ot V72.83 EXAM PRE- OPERATIVE NEC 05/15/2016 Ot V74.8 SCREEN- BACTERIAL DIS NEC 05/15/2016 Ot 285.9 ANEMIA NOS 05/15/2016 Ot 401.9 HYPERTENSION NOS 05/15/2016 Ot 424.0 MITRAL VALVE DISORDER 05/15/2016 ALEK BASURTO, CHICA Gregory Ot 733.90 BONE CARTILAGE DIS NOS 05/15/2016 CHICA GASTON MD Ot V82.81 SCREENING FOR OSTEOPOROSIS 05/15/2016 CHICA GASTON MD Ot V76.12 OTH SCREEN MAMMO-MALIGN NEOPLASM OF [place] 05/15/2016 MARJAN BASURTO, BABATUNDE Lara Ot V72.84 EXAM PRE-OPERATIVE NOS 05/15/2016 ANABELLA MELISSA CLIENT SERVICES DIRECTOR Ot 424.0 MITRAL VALVE DISORDER 05/15/2016 ANABELLA MELISSA CLIENT SERVICES DIRECTOR Ot 427.69 PREMATURE BEATS NEC 05/15/2016 BAIMA, ANABELLA L CLIENT SERVICES DIRECTOR Ot 427.89 CARDIAC DYSRHYTHMIAS NEC 05/15/2016 ALEK BASURTO, CHICA Gregory Ot 733.99 BONE CARTILAGE DIS NEC 05/15/2016 PEPE BASURTO [facility], ALI FACP CCDS Ot 424.0 MITRAL VALVE DISORDER 05/15/2016 PEPE BASURTO FAC, ALI FACP CCDS Ot 719.41 JOINT PAIN-SHLDER 05/15/2016 PEPE BASURTO FAC, ALI FACP CCDS Ot 785.1 PALPITATIONS 05/15/2016 PEPE BASURTO [facility], ALI FACP CCDS Ot 786.59 CHEST PAIN NEC 05/15/2016 AZRA BASURTO, HIGINIO Paez Ot V76.12 OTH SCREEN MAMMO-MALIGN NEOPLASM OF [place] 05/15/2016 SHIN, ANABELLA L CLIENT SERVICES DIRECTOR Ot I34.1 NONRHEUMATIC MITRAL (VALVE) PROLAPSE 05/16/2016 BAIMA, ANABELLA L CLIENT SERVICES DIRECTOR Ot I34.1 NONRHEUMATIC MITRAL (VALVE) PROLAPSE 06/01/2016 BAIMA, ANABELLA L CLIENT SERVICES DIRECTOR Ot I34.1 NONRHEUMATIC MITRAL (VALVE) PROLAPSE 06/01/2016 BAIMA, ANABELLA L CLIENT SERVICES DIRECTOR Ot I47.9 PAROXYSMAL TACHYCARDIA, UNSPECIFIED 06/01/2016 BAIMA, ANABELLA L CLIENT SERVICES DIRECTOR Ot R00.2 PALPITATIONS 06/01/2016 BAIMA, ANABELLA L CLIENT SERVICES DIRECTOR Ot R06.00 DYSPNEA, UNSPECIFIED 06/08/2016 BAIMA, ANABELLA L CLIENT SERVICES DIRECTOR Ot I34.1 NONRHEUMATIC MITRAL (VALVE) PROLAPSE 06/08/2016 BAIMA, ANABELLA L CLIENT SERVICES DIRECTOR Ot I47.9 PAROXYSMAL TACHYCARDIA, UNSPECIFIED 06/08/2016 BAIMA, ANABELLA L CLIENT SERVICES DIRECTOR Ot R00.2 PALPITATIONS 06/08/2016 BAIMA, ANABELLA L CLIENT SERVICES DIRECTOR Ot R06.00 DYSPNEA, UNSPECIFIED 06/09/2016 BAIMA, ANABELLA L CLIENT SERVICES DIRECTOR Ot I27.2 OTHER SECONDARY PULMONARY HYPERTENSION 06/09/2016 BAIMA, ANABELLA L CLIENT SERVICES DIRECTOR Ot I34.1 NONRHEUMATIC MITRAL (VALVE) PROLAPSE 06/09/2016 BAIMA, ANABELLA L CLIENT SERVICES DIRECTOR Ot I47.9 PAROXYSMAL TACHYCARDIA, UNSPECIFIED 06/09/2016 BAIMA, ANABELLA L CLIENT SERVICES DIRECTOR Ot I49.3 VENTRICULAR PREMATURE DEPOLARIZATION 06/19/2016 BAIMA, ANABELLA L CLIENT SERVICES DIRECTOR Ot I27.2 OTHER SECONDARY PULMONARY HYPERTENSION 06/19/2016 ANABELLA MELISSA CLIENT SERVICES DIRECTOR Ot I34.1 NONRHEUMATIC MITRAL (VALVE) PROLAPSE 06/19/2016 ANABELLA MELISSA CLIENT SERVICES DIRECTOR Ot I47.9 PAROXYSMAL TACHYCARDIA, UNSPECIFIED 06/19/2016 ANABELLA MELISSA CLIENT SERVICES DIRECTOR Ot I49.3 VENTRICULAR PREMATURE DEPOLARIZATION 07/20/2016 ANABELLA MELISSA CLIENT SERVICES DIRECTOR Ot I34.1 NONRHEUMATIC MITRAL (VALVE) PROLAPSE 07/20/2016 ANABELLA MELISSA CLIENT SERVICES DIRECTOR Ot I47.9 PAROXYSMAL TACHYCARDIA, UNSPECIFIED 07/20/2016 BAIANABELLA ECKERT CLIENT SERVICES DIRECTOR Ot R00.2 PALPITATIONS 07/20/2016 ANABELLA MELISSA CLIENT SERVICES DIRECTOR Ot R06.00 DYSPNEA, UNSPECIFIED 07/26/2016 ANABELLA MELISSA CLIENT SERVICES DIRECTOR Ot I34.1 NONRHEUMATIC MITRAL (VALVE) PROLAPSE 07/26/2016 ANABELLA MELISSA CLIENT SERVICES DIRECTOR Ot I47.9 PAROXYSMAL TACHYCARDIA, UNSPECIFIED 07/26/2016 ANABELLA MELISSA CLIENT SERVICES DIRECTOR Ot R00.2 PALPITATIONS 07/26/2016 ANABELLA MELISSA CLIENT SERVICES DIRECTOR Ot R06.00 DYSPNEA, UNSPECIFIED 08/21/2016 AZRA BASURTO, HIGINIO Paez Ot Z12.31 ENCNTR SCREEN MAMMOGRAM FOR MALIGNANT NE 08/22/2016 HIGINIO OQUENDO MD Ot Z12.31 ENCNTR SCREEN MAMMOGRAM FOR MALIGNANT NE 08/22/2016 HIGINIO OQUENDO MD Ot Z12.31 ENCNTR SCREEN MAMMOGRAM FOR MALIGNANT NE 08/22/2016 HIGINIO OQUENDO MD Ot Z12.31 ENCNTR SCREEN MAMMOGRAM FOR MALIGNANT NE 08/22/2016 HIGINIO OQUENDO MD Ot Z12.31 ENCNTR SCREEN MAMMOGRAM FOR MALIGNANT NE 08/23/2016 Ot 729.81 SWELLING OF LIMB 08/23/2016 Ot 796.4 ABN CLINICAL FINDING NEC 08/23/2016 Ot V76.12 OTH SCREEN MAMMO-MALIGN NEOPLASM OF [place] 08/23/2016 Ot 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 08/23/2016 Ot V72.84 EXAM PRE- OPERATIVE NOS 08/23/2016 Ot V74.8 SCREEN- BACTERIAL DIS NEC 08/23/2016 Ot 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 08/23/2016 Ot 397.0 TRICUSPID VALVE DISEASE 08/23/2016 Ot V76.12 OTH SCREEN MAMMO-MALIGN NEOPLASM OF [place] 08/23/2016 Ot 715.36 LOC OSTEOARTH NOS-L/LEG 08/23/2016 Ot 791.9 ABN URINE FINDINGS NEC 08/23/2016 Ot V57.1 PHYSICAL THERAPY NEC 08/23/2016 Ot V57.21 ENCOUNTER FOR OCCUPATIONAL THERAPY 08/23/2016 Ot V72.63 PRE- PROCEDURAL LABORATORY EXAMINATION 08/23/2016 Ot V72.83 EXAM PRE- OPERATIVE NEC 08/23/2016 Ot V74.8 SCREEN- BACTERIAL DIS NEC 08/23/2016 Ot 285.9 ANEMIA NOS 08/23/2016 Ot 401.9 HYPERTENSION NOS 08/23/2016 Ot 424.0 MITRAL VALVE DISORDER 08/23/2016 ALEK BASURTO, CHICA Gregory Ot 733.90 BONE CARTILAGE DIS NOS 08/23/2016 ALEK BASURTO, CHICA Gregory Ot V82.81 SCREENING FOR OSTEOPOROSIS 08/23/2016 ALEK BASURTO, CHICA Gregory Ot V76.12 OTH SCREEN MAMMO-MALIGN NEOPLASM OF [place] 08/23/2016 MARJAN BASURTO, BABATUNDE Lara Ot V72.84 EXAM PRE-OPERATIVE NOS 08/23/2016 ANABELLA MELISSA CLIENT SERVICES DIRECTOR Ot 424.0 MITRAL VALVE DISORDER 08/23/2016 ANABELLA MELISSA CLIENT SERVICES DIRECTOR Ot 427.69 PREMATURE BEATS NEC 08/23/2016 ANABELLA MELISSA CLIENT SERVICES DIRECTOR Ot 427.89 CARDIAC DYSRHYTHMIAS NEC 08/23/2016 ALEK BASURTO, CHICA Gregory Ot 733.99 BONE CARTILAGE DIS NEC 08/23/2016 PEPE BASURTO FACC, CHARY FACP CCDS Ot 424.0 MITRAL VALVE DISORDER 08/23/2016 PEPE BASURTO FACC, CHARY FACP CCDS Ot 719.41 JOINT PAIN-SHLDER 08/23/2016 PEPE BASURTO FACC, CHARY FACP CCDS Ot 785.1 PALPITATIONS 08/23/2016 PEPE BASURTO FACC, ALI FACP CCDS Ot 786.59 CHEST PAIN NEC 08/23/2016 AZRA BASURTO, HIGINIO Paez Ot V76.12 OTH SCREEN MAMMO-MALIGN NEOPLASM OF [place] 08/23/2016 ANABELLA MELISSA CLIENT SERVICES DIRECTOR Ot I27.2 OTHER SECONDARY PULMONARY HYPERTENSION 08/23/2016 BAIMAANABELLA L CLIENT SERVICES DIRECTOR Ot I34.1 NONRHEUMATIC MITRAL (VALVE) PROLAPSE 08/23/2016 BAIMA, ANABELLA L CLIENT SERVICES DIRECTOR Ot I47.9 PAROXYSMAL TACHYCARDIA, UNSPECIFIED 08/23/2016 BAIMAHELENEANABELLA L CLIENT SERVICES DIRECTOR Ot I49.3 VENTRICULAR PREMATURE DEPOLARIZATION 08/23/2016 BAIMA, ANABELLA L CLIENT SERVICES DIRECTOR Ot I34.1 NONRHEUMATIC MITRAL (VALVE) PROLAPSE 08/23/2016 BAIMA, ANABELLA L CLIENT SERVICES DIRECTOR Ot I47.9 PAROXYSMAL TACHYCARDIA, UNSPECIFIED 08/23/2016 BAIMA, ANABELLA L CLIENT SERVICES DIRECTOR Ot R00.2 PALPITATIONS 08/23/2016 BAIMA, ANABELLA L CLIENT SERVICES DIRECTOR Ot R06.00 DYSPNEA, UNSPECIFIED 08/23/2016 AZRA BASURTO, HIGINIO Paez Ot Z12.31 ENCNTR SCREEN MAMMOGRAM FOR MALIGNANT NE 08/25/2016 AZRA BASURTO, HIGINIO Paez Ot Z12.31 ENCNTR SCREEN MAMMOGRAM FOR MALIGNANT NE 08/29/2016 BAIMA, ANABELLA L CLIENT SERVICES DIRECTOR Ot I34.1 NONRHEUMATIC MITRAL (VALVE) PROLAPSE 08/29/2016 BAIMA, ANABELLA L CLIENT SERVICES DIRECTOR Ot I47.9 PAROXYSMAL TACHYCARDIA, UNSPECIFIED 08/29/2016 BAIMA, ANABELLA L CLIENT SERVICES DIRECTOR Ot R00.2 PALPITATIONS 08/29/2016 BAIMA, ANABELLA L CLIENT SERVICES DIRECTOR Ot R06.00 DYSPNEA, UNSPECIFIED 08/30/2016 BAIMA, ANABELLA L CLIENT SERVICES DIRECTOR Ot I34.1 NONRHEUMATIC MITRAL (VALVE) PROLAPSE 08/30/2016 BAIMAHELENEANABELLA L CLIENT SERVICES DIRECTOR Ot I47.9 PAROXYSMAL TACHYCARDIA, UNSPECIFIED 08/30/2016 BAIMA, ANABELLA L CLIENT SERVICES DIRECTOR Ot R00.2 PALPITATIONS 08/30/2016 BAIMA, ANABELLA L CLIENT SERVICES DIRECTOR Ot R06.00 DYSPNEA, UNSPECIFIED 08/31/2016 AZRA BASURTO, HIGINIO Paez Ot Z12.31 ENCNTR SCREEN MAMMOGRAM FOR MALIGNANT NE 01/16/2017 AZRA BASURTO, HIGINIO Paez Ot R07.81 PLEURODYNIA 02/01/2017 AZRA BASURTO, HIGINIO Paez Ot R07.81 PLEURODYNIA 02/12/2017 AZRA BASURTO, HIGINIO Paez Ot R07.81 PLEURODYNIA 12/17/2017 ROMAINE MAYNARD APRN Ot R05 COUGH 12/31/2017 ROMAINE MAYNARD CREDIT CASHIER Ot R05 COUGH 01/03/2018 ALEYDA ROMAINE Gregory CREDIT CASHIER Ot R05 COUGH 04/19/2018 BAIANABELLA ECKERT L CLIENT SERVICES DIRECTOR Ot I08.3 COMB RHEUMATIC DISORD OF MITRAL, AORTIC 04/19/2018 BAIMAANABELLA L CLIENT SERVICES DIRECTOR Ot I25.10 ATHSCL HEART DISEASE OF [place] CORONARY 04/19/2018 BAIMA, ANABELLA L CLIENT SERVICES DIRECTOR Ot I49.1 ATRIAL PREMATURE DEPOLARIZATION 04/19/2018 BAIMA, ANABELLA L CLIENT SERVICES DIRECTOR Ot R00.2 PALPITATIONS 04/19/2018 BAIMA, ANABELLA L CLIENT SERVICES DIRECTOR Ot R06.09 OTHER FORMS OF DYSPNEA 04/24/2018 BAIMA, ANABELLA L CLIENT SERVICES DIRECTOR Ot I08.3 COMB RHEUMATIC DISORD OF MITRAL, AORTIC 04/24/2018 BAIMA, ANABELLA L CLIENT SERVICES DIRECTOR Ot I25.10 ATHSCL HEART DISEASE OF [place] CORONARY 04/24/2018 BAIMA ANABELLA L CLIENT SERVICES DIRECTOR Ot I49.1 ATRIAL PREMATURE DEPOLARIZATION 04/24/2018 BAIMA, ANABELLA L CLIENT SERVICES DIRECTOR Ot R00.2 PALPITATIONS 04/24/2018 BAIMA, ANABELLA L CLIENT SERVICES DIRECTOR Ot R06.09 OTHER FORMS OF DYSPNEA 05/07/2018 Ot 715.36 LOC OSTEOARTH NOS-L/LEG 05/07/2018 Ot 791.9 ABN URINE FINDINGS NEC 05/07/2018 Ot V57.1 PHYSICAL THERAPY NEC 05/07/2018 Ot V57.21 ENCOUNTER FOR OCCUPATIONAL THERAPY 05/07/2018 Ot V72.63 PRE- PROCEDURAL LABORATORY EXAMINATION 05/07/2018 Ot V72.83 EXAM PRE- OPERATIVE NEC 05/07/2018 Ot V74.8 SCREEN- BACTERIAL DIS NEC 05/07/2018 Ot 285.9 ANEMIA NOS 05/07/2018 Ot 401.9 HYPERTENSION NOS 05/07/2018 Ot 424.0 MITRAL VALVE DISORDER 05/07/2018 ALEK BASURTO, CHICA Gregory Ot 733.90 BONE CARTILAGE DIS NOS 05/07/2018 ALEK BASURTO, CHICA Gregory Ot V82.81 SCREENING FOR OSTEOPOROSIS 05/07/2018 CHICA GASTON MD Ot V76.12 OTH SCREEN MAMMO-MALIGN NEOPLASM OF [place] 05/07/2018 MARJAN BASURTO, BABATUNDE Lara Ot V72.84 EXAM PRE-OPERATIVE NOS 05/07/2018 BAIANABELLA ECKERT L CLIENT SERVICES DIRECTOR Ot 424.0 MITRAL VALVE DISORDER 05/07/2018 NANCYANABELLA ECKERT L CLIENT SERVICES DIRECTOR Ot 427.69 PREMATURE BEATS NEC 05/07/2018 NANCYANABELLA ECKERT L CLIENT SERVICES DIRECTOR Ot 427.89 CARDIAC DYSRHYTHMIAS NEC 05/07/2018 ALEK BASURTO, CHICA Gregory Ot 733.99 BONE CARTILAGE DIS NEC 05/07/2018 PEPE BASURTO FACC, ALI FACP CCDS Ot 424.0 MITRAL VALVE DISORDER 05/07/2018 PEPE BASURTO FACC, ALI FACP CCDS Ot 719.41 JOINT PAIN-SHLDER 05/07/2018 PEPE BASURTO FACC, ALI FACP CCDS Ot 785.1 PALPITATIONS 05/07/2018 PEPE BASURTO FACC, ALI FACP CCDS Ot 786.59 CHEST PAIN NEC 05/07/2018 AZRA BASURTO, HIGINIO Paez Ot V76.12 OTH SCREEN MAMMO-MALIGN NEOPLASM OF [place] 05/07/2018 ANABELLA MELISSA L CLIENT SERVICES DIRECTOR Ot I27.2 OTHER SECONDARY PULMONARY HYPERTENSION 05/07/2018 ANABELLA MELISSA L CLIENT SERVICES DIRECTOR Ot I34.1 NONRHEUMATIC MITRAL (VALVE) PROLAPSE 05/07/2018 SHIN ANABELLA L CLIENT SERVICES DIRECTOR Ot I47.9 PAROXYSMAL TACHYCARDIA, UNSPECIFIED 05/07/2018 SHIN ANABELLA L CLIENT SERVICES DIRECTOR Ot I49.3 VENTRICULAR PREMATURE DEPOLARIZATION 05/07/2018 AZRA BASURTO, HIGINIO Paez Ot Z12.31 ENCNTR SCREEN MAMMOGRAM FOR MALIGNANT NE 05/07/2018 Ot I34.1 NONRHEUMATIC MITRAL (VALVE) PROLAPSE 05/07/2018 Ot I47.9 PAROXYSMAL TACHYCARDIA, UNSPECIFIED 05/07/2018 Ot R00.2 PALPITATIONS 05/07/2018 Ot R06.00 DYSPNEA, UNSPECIFIED 05/07/2018 AZRA BASURTO, HIGINIO Paez Ot R07.81 PLEURODYNIA 05/07/2018 ROMAINE MAYNARD APRN Ot R05 COUGH 05/07/2018 ANABELLA MELISSA L CLIENT SERVICES DIRECTOR Ot I08.3 COMB RHEUMATIC DISORD OF MITRAL, AORTIC 05/07/2018 ANABELLA MELISSA L CLIENT SERVICES DIRECTOR Ot I25.10 ATHSCL HEART DISEASE OF [place] CORONARY 05/07/2018 ANABELLA MELISSA L CLIENT SERVICES DIRECTOR Ot I49.1 ATRIAL PREMATURE DEPOLARIZATION 05/07/2018 HLEENE MELISSAHER Hussain CLIENT SERVICES DIRECTOR Ot R00.2 PALPITATIONS 05/07/2018 SHINANABELLA L CLIENT SERVICES DIRECTOR Ot R06.09 OTHER FORMS OF DYSPNEA 05/07/2018 PEPE BASURTO FACC, ALI FACP CCDS Ot I25.10 ATHSCL HEART DISEASE OF [place] CORONARY 05/07/2018 PEPE BASURTO FACC, ALI FACP CCDS Ot I27.20 PULMONARY HYPERTENSION, UNSPECIFIED 05/07/2018 PEPE BASURTO FACC, ALI FACP CCDS Ot I34.0 NONRHEUMATIC MITRAL (VALVE) INSUFFICIENC 05/07/2018 PEPE BASURTO FACC, ALI FACP CCDS Ot Z79.82 WALL TAPER (CURRENT) USE OF ASPIRIN 05/07/2018 PEPE BASURTO FACC, ALI FACP CCDS Ot Z79.899 OTHER WALL TAPER (CURRENT) DRUG THERAPY 05/09/2018 ANABELLA MELISSA CLIENT SERVICES DIRECTOR Ot I08.3 COMB RHEUMATIC DISORD OF MITRAL, AORTIC 05/09/2018 ANABELLA MELISSA L CLIENT SERVICES DIRECTOR Ot I25.10 ATHSCL HEART DISEASE OF [place] CORONARY 05/09/2018 ANABELLA MELISSA CLIENT SERVICES DIRECTOR Ot I49.1 ATRIAL PREMATURE DEPOLARIZATION 05/09/2018 ANABELLA MELISSA CLIENT SERVICES DIRECTOR Ot R00.2 PALPITATIONS 05/09/2018 ANABELLA MELISSA CLIENT SERVICES DIRECTOR Ot R06.09 OTHER FORMS OF DYSPNEA 05/09/2018 PEPE BASURTO FACC, ALI FACP CCDS Ot I25.10 ATHSCL HEART DISEASE OF [place] CORONARY 05/09/2018 PEPE BASURTO FACC, ALI FACP CCDS Ot I27.20 PULMONARY HYPERTENSION, UNSPECIFIED 05/09/2018 PEPE BASURTO FACC, ALI FACP CCDS Ot I34.0 NONRHEUMATIC MITRAL (VALVE) INSUFFICIENC 05/09/2018 PEPE BASURTO FACC, ALI FACP CCDS Ot Z79.82 WALL TAPER (CURRENT) USE OF ASPIRIN 05/09/2018 PEPE BASURTO FACC, ALI FACP CCDS Ot Z79.899 OTHER [facility] (CURRENT) DRUG THERAPY 05/15/2018 ANABELLA MELISSA L CLIENT SERVICES DIRECTOR Ot I08.3 COMB RHEUMATIC DISORD OF MITRAL, AORTIC 05/15/2018 HELENE MELISSAHER L CLIENT SERVICES DIRECTOR Ot I25.10 ATHSCL HEART DISEASE OF [place] CORONARY 05/15/2018 ANABELLA MELISSA CLIENT SERVICES DIRECTOR Ot I49.1 ATRIAL PREMATURE DEPOLARIZATION 05/15/2018 ANABELLA MELISSA CLIENT SERVICES DIRECTOR Ot R00.2 PALPITATIONS 05/15/2018 ANABELLA MELISSA CLIENT SERVICES DIRECTOR Ot R06.09 OTHER FORMS OF DYSPNEA 05/16/2018 PEPE BASURTO FACC, ALI FACP CCDS Ot I25.10 ATHSCL HEART DISEASE OF [place] CORONARY 05/16/2018 PEPE BASURTO FACC, ALI FACP CCDS Ot I27.20 PULMONARY HYPERTENSION, UNSPECIFIED 05/16/2018 PEPE BASURTO FACC, ALI FACP CCDS Ot I34.0 NONRHEUMATIC MITRAL (VALVE) INSUFFICIENC 05/16/2018 PEPE BASURTO FACC, CHARY FACP CCDS Ot Z79.82 WALL TAPER (CURRENT) USE OF ASPIRIN 05/16/2018 PEPE BASURTO FACC, ALI FACP CCDS Ot Z79.899 OTHER [facility] (CURRENT) DRUG THERAPY Procedures Code Description Performed By Performed On 81.54 TOTAL KNEE REPLACEMENT 01/22/2013 Results Test Result Range Automated blood complete blood count (hemogram) panel - 05/07/18 08:30 Blood leukocytes automated count (number/volume) 6.0 10*3/uL 4.3-11.0 Blood erythrocytes automated count (number/volume) 3.80 10*6/uL 4.35-5.85 Venous blood hemoglobin measurement (mass/volume) 12.2 g/dL 11.5-16.0 Blood hematocrit (volume fraction) 36 % 35-52 Automated erythrocyte mean corpuscular volume 95 [foz_us] 80-99 Automated erythrocyte mean corpuscular hemoglobin (mass per erythrocyte) 32 pg 25-34 Automated erythrocyte mean corpuscular hemoglobin concentration measurement ( mass/volume) 34 g/dL 32-36 Automated erythrocyte distribution width ratio 12.6 % 10.0-14.5 Automated blood platelet count (count/volume) 213 10*3/uL 130-400 Automated blood platelet mean volume measurement 12.2 [foz_us] 7.4-10.4 PT panel in platelet poor plasma by coagulation assay - 05/07/18 08:30 Prothrombin time (PT) in platelet poor plasma by coagulation assay 13.4 s 12.2-14.7 INR in platelet poor plasma or blood by coagulation assay 1.0 0.8-1.4 Activated partial thromboplastin time (aPTT) in platelet poor plasma bycoagulation assay - 05/07/18 08:30 Activated partial thromboplastin time (aPTT) in platelet poor plasma bycoagulation assay 32 s 24-35 Comprehensive metabolic panel - 05/07/18 08:30 Serum or plasma sodium measurement (moles/volume) 142 mmol/L 135-145 Serum or plasma potassium measurement (moles/volume) 4.3 mmol/L 3.6-5.0 Serum or plasma chloride measurement (moles/volume) 111 mmol/L 98-107 Carbon dioxide 26 mmol/L 21-32 Serum or plasma anion gap determination (moles/volume) 5 mmol/L 5-14 Serum or plasma urea nitrogen measurement (mass/volume) 23 mg/dL 7-18 Serum or plasma creatinine measurement (mass/volume) 0.96 mg/dL 0.60-1.30 Serum or plasma urea nitrogen/creatinine mass ratio 24 NRG Serum or plasma creatinine measurement with calculation of estimated glomerular filtration rate 57 NRG Serum or plasma glucose measurement (mass/volume) 89 mg/dL 70-105 Serum or plasma calcium measurement (mass/volume) 9.6 mg/dL 8.5-10.1 Serum or plasma total bilirubin measurement (mass/volume) 0.7 mg/dL 0.1-1.0 Serum or plasma alkaline phosphatase measurement (enzymatic activity/volume) 60 U/L 40-136 Serum or plasma aspartate aminotransferase measurement (enzymatic activity/ volume) 16 U/L 5-34 Serum or plasma alanine aminotransferase measurement (enzymatic activity/volume ) 13 U/L 0-55 Serum or plasma protein measurement (mass/volume) 6.9 g/dL 6.4-8.2 Serum or plasma albumin measurement (mass/volume) 4.0 g/dL 3.2-4.5 Lipid 1996 panel - 05/07/18 08:30 Serum or plasma triglyceride measurement (mass/volume) 103 mg/dL <150 Serum or plasma cholesterol measurement (mass/volume) 219 mg/dL < 200 Serum or plasma cholesterol in HDL measurement (mass/volume) 45 mg/ dL 40-60 Cholesterol in LDL [mass/volume] in serum or plasma by direct assay 157 mg/dL 1-129 Serum or plasma cholesterol in VLDL measurement (mass/volume) 21 mg/ dL 5-40 Methicillin resistant Staphylococcus aureus (MRSA) screening culture - 08:30 Methicillin resistant Staphylococcus aureus (MRSA) screening culture NEG NRG Encounters ACCT No. Visit Date/Time Discharge Status Pt. Type Provider Facility Loc./Unit Complaint [id number] 05/07/2018 07:59:00 05/07/2018 12:40:00 DIS Outpatient PEPE BASURTO FACCCHARY FACP CCDS [facility] MITRAL VALVE REGURGITATION,MITRAL VALVE PROLAPSE [id number] 05/03/2018 13:00:00 05/03/2018 23:59:59 CLS Preadmit HLEENE MELISSAHER L CLIENT SERVICES DIRECTOR [facility] CARD HARDIN,PALPITATIONS,PAC,CAD ,CAROTID ARTERIAL DISEASE [id number] 04/18/2018 06:57:00 04/18/2018 23:59:59 CLS Outpatient BAITOMEKA ANABELLA L CLIENT SERVICES DIRECTOR [facility] HARDIN,PALPITATIONS,PAC ,CAD,CAROTID ARTERIAL DISEASE [id number] 12/14/2017 11:23:00 12/14/2017 23:59:59 CLS Outpatient ROMAINE MAYNARD APRN [facility] RAD PERSISTENT COUGH,SOB [id number] 01/16/2017 10:49:00 01/16/2017 23:59:59 CLS Outpatient HIGINIO OQUENDO MD [facility] RAD RT RIB PAIN [id number] 08/21/2016 09:32:00 08/21/2016 23:59:59 CLS Outpatient HIGINIO OQUENDO MD [facility] RAD SCREENING [id number] 06/23/2016 06:41:00 06/23/2016 23:59:59 CLS Outpatient SHIN ANABELLA L CLIENT SERVICES DIRECTOR [facility] HEART PALPITATIONS, DYSPNEA,MITRAL REGURGITATION [id number] 05/15/2016 11:41:00 05/15/2016 23:59:59 CLS Outpatient SHIN ANABELLA L CLIENT SERVICES DIRECTOR [facility] CARD MITRAL REGURGITATION , PVC, PULMONARY HTC, ST [id number] 07/19/2015 09:51:00 07/19/2015 23:59:59 CLS Outpatient HIGINIO OQUENDO MD [facility] RAD SCREENING [id number] 04/15/2015 07:52:00 04/15/2015 23:59:59 CLS Outpatient PEPE BASURTO FACCCHARY FACP CCDS [facility] CARD CP, PALPITATIONS [id number] 07/08/2014 09:29:00 07/08/2014 23:59:59 CLS Outpatient CHICA GASTON MD [facility] RAD ENLARGING AURELIO PROMINEICE [id number] 04/22/2014 09:51:00 04/22/2014 23:59:59 CLS Outpatient NANCYTOMEKA ANABELLA Hussain CLIENT SERVICES DIRECTOR [facility] CARD MITRAL REGURGITATION [id number] 02/17/2014 06:51:00 02/17/2014 09:55:00 DIS Outpatient BABATUNDE PHILLIP MD [facility] SDC SCREENING [id number] 02/16/2014 10:54:00 02/16/2014 23:59:59 CLS Outpatient BABATUNDE PHILLIP MD [facility] PREOP SCREENING [id number] 11/13/2013 09:22:00 11/13/2013 23:59:59 CLS Outpatient CHICA GASTON MD [facility] RAD SCREENING [id number] 08/01/2013 11:04:00 08/01/2013 23:59:59 CLS Outpatient CHICA GASTON MD [facility] RAD SCREENING [id number] 08/30/2016 08:30:00 Document Registration [id number] 01/27/2013 15:10:00 Document Registration [id number] 01/22/2013 06:06:00 Document Registration [id number] 01/16/2013 09:48:00 Document Registration [id number] 09/06/2012 10:00:00 Document Registration [id number] 05/27/2012 19:00:00 Document Registration [id number] 03/13/2012 08:31:00 Document Registration [id number] 09/01/2011 05:42:00 Document Registration [id number] 08/28/2011 09:05:00 Document Registration [id number] 08/25/2011 08:26:00 Document Registration [id number] 07/28/2011 10:59:00 Document Registration
[2018-07-02 23:04] LABS: BILIRUBIN,URINE NEGATIVE (NEGATIVE); CLARITY,URINE CLEAR; COLOR,URINE YELLOW; GLUCOSE, URINE (UA) NEGATIVE (NEGATIVE); KETONES,URINE 1+ (NEGATIVE); LEUKOCYTE ESTERASE ,URINE 2+ (NEGATIVE); NITRITE,URINE POSITIVE (NEGATIVE); PH,URINE 6.5 (5-9); PROTEIN,URINE NEGATIVE (NEGATIVE); UROBILINOGEN,URINE NORMAL (NORMAL)
[2018-07-02 23:14] LABS: BACTERIA,URINE LARGE /HPF
[2018-07-03] VITALS: BP 142/77
[2018-07-03] MEDS: NS IV 1000 ML 1,000 ML IV SCH ×3 (02:39→22:25)
[2018-07-03 04:22] LABS: HEMOGLOBIN 11.6 G/DL (11.5-16.0); MEAN PLATELET VOLUME 12.3 FL (7.4-10.4); RED BLOOD COUNT 3.61 10^6/uL (4.35-5.85); RED CELL DISTRIBUTION WIDTH 12.4 % (10.0-14.5); WHITE BLOOD COUNT 7.3 10^3/uL (4.3-11.0)
[2018-07-03 04:40] LABS: ALANINE AMINOTRANSFERASE 16 U/L (0-55); ALBUMIN 3.7 GM/DL (3.2-4.5); ALKALINE PHOSPHATASE 64 U/L (40-136); BILIRUBIN,TOTAL 0.5 MG/DL (0.1-1.0); BUN/CREATININE RATIO 15; CALCIUM 9.2 MG/DL (8.5-10.1); CARBON DIOXIDE 16 MMOL/L (21-32); CHLORIDE 112 MMOL/L (98-107); CREATININE SERUM 0.81 MG/DL (0.60-1.30); GFR ESTIMATED > 60; GLUCOSE 88 MG/DL (70-105); POTASSIUM 3.8 MMOL/L (3.6-5.0); SODIUM 140 MMOL/L (135-145); TOTAL PROTEIN 6.4 GM/DL (6.4-8.2)
--- NOTE | 2018-07-03 08:34 | Progress Note ---
Subjective Date Seen by Provider: Jul 03, 2018 Time Seen by Provider: 08:00 Subjective/Events-last exam PT REPORTS FEELING LESS DIZZY THIS MORNING, HER HEART RATE HAS IMPROVED, BUT SHE HAD A HORRIBLE NIGHT DUE TO THE NOISE IN THE ROOM Review of Systems General: Fatigue HEENT: No Head Aches Pulmonary: No Dyspnea, No Cough Cardiovascular: No: Chest Pain, Palpitations Gastrointestinal: No: Nausea, Abdominal Pain Neurological: Weakness, Other (DIZZY); No: Confusion Objective Exam Last Set of Vital Signs Vital Signs Date Time Temp Pulse Resp B/P (MAP) Pulse Ox O2 Delivery O2 Flow Rate FiO2 07/03/18 07:00 68 07/03/18 04:00 95 Room Air 07/03/18 03:37 97.5 07/03/18 00:00 142/77 (98) 07/02/18 20:00 18 Capillary Refill : I&O Intake and Output 07/02/18 23:59 Intake Total 200 ml Output Total 450 ml Balance -250 ml Intake Oral 200 ml Output Urine Total 450 ml Daily Weight Change No General: Alert, Oriented X3, Cooperative, No Acute Distress HEENT: Atraumatic, PERRLA Neck: Supple Lungs: Clear to Auscultation Heart: Regular Rate, Other (PAC) Abdomen: Normal Bowel Sounds, Soft Skin: No Rashes, No Breakdown Neuro: Cranial Nerves 3-12 NL Psych/Mental Status: Mental Status NL, Mood NL Results Lab Laboratory Tests 07/02/18 22:55: Urine Color YELLOW, Urine Clarity CLEAR, Urine pH 6.5, Urine Specific [place] 1.015L, Urine Protein NEGATIVE, Urine Glucose (UA) NEGATIVE, Urine Ketones 1+H, Urine Nitrite POSITIVEH, Urine Bilirubin NEGATIVE, Urine Urobilinogen NORMAL, Urine Leukocyte Esterase 2+H, Urine RBC (Auto) NEGATIVE, Urine RBC NONE, Urine WBC 5-10H, Urine Crystals NONE, Urine Bacteria LARGEH, Urine Casts NONE, Urine Mucus NEGATIVE, Urine Culture Indicated YES 07/03/18 03:10: White Blood Count 7.3, Red Blood Count 3.61L, Hemoglobin 11.6, Hematocrit 35, Mean Corpuscular Volume 96, Mean Corpuscular Hemoglobin 32, Mean Corpuscular Hemoglobin Concent 33, Red Cell Distribution Width 12.4, Platelet Count 203, Mean Platelet Volume 12.3H, Sodium Level 140, Potassium Level 3.8, Chloride Level 112H, Carbon Dioxide Level 16L, Anion Gap 12, Blood Urea Nitrogen 12, Creatinine 0.81, Estimat Glomerular Filtration Rate > 60, BUN/Creatinine Ratio 15, Glucose Level 88, Calcium Level 9.2, Corrected Calcium 9.4, Total Bilirubin 0.5, Aspartate Amino Transf (AST/SGOT) 19, Alanine Aminotransferase (ALT/SGPT) 16, Alkaline Phosphatase 64, Total Protein 6.4, Albumin 3.7 Assessment/Plan Assessment/Plan Assess & Plan/Chief Complaint BRADYCARDIA IRREGULAR RHYTHM - SUSPECT AFIB DIZZINESS NAUSEA AND EMESIS BRADYCARDIA - WITH IRREGULAR RHYTHM - SUSPECT AFIB - DISCUSSED WITH DR. CANTU - PT ADMITTED TO THE HOSPITAL FROM CLINIC, IV FLUIDS INITIATED AND EKG OBTAINED , PT PLACED IN ICU FOR CLOSE MONITORING AND TELEMETRY PLACED ON PATIENT. - PT DID NOT HAVE AFIB ON EKG - BUT MULTIPLE PAC'S - SUPPORTIVE CARE AT THIS TIME, MONITOR HER DIZZINESS AND HEART RATE OFF OF THE METOPROLOL DIZZINESS WITH NAUSEA AND EMESIS - CHECK LABS, CHECK CHEST XRAY, ZOFRAN IV AND IV FLUIDS INITIATED. ADVANCE DIET TOLERATED. FOR GI PROPHYLAXIS, WILL START PROTONIX IV BID AND LOVENOX FOR DVT PROPHYLAXIS Clinical Quality Measures Admission Status Admission Dx BRADYCARDIA IRREGULAR RHYTHM - SUSPECT AFIB DIZZINESS NAUSEA AND EMESIS DVT/VTE Risk/Contraindication: Risk Factor Score Per Nursin RFS Level Per Nursing on Admit: 2=Moderate HIGINIO OQUENDO MD Jul 03, 2018 08:34
[2018-07-03] MEDS: PANTOPRAZOLE 40 MG (PROTONIX) VIAL IV SCH ×2 (08:58→20:05)
[2018-07-03] MEDS: cefTRIAXone FOR IV USE 1,000 MG in NS (IVPB) 50 ML IV SCH (08:59)
[2018-07-03 09:07] VITALS: BP 170/68
[2018-07-03] MEDS ORDERED: AMOX500C2 PO (10:40)
[2018-07-03 12:00] VITALS: BP 156/93
--- NOTE | 2018-07-03 12:18 | Progress Note-Cardiology ---
Cardiology SOAP Progress Note Subjective: Feels better today No cp or palp or syncope or shortness of breath at rest Dizziness/vertigo improved but not resolved Objective: I&O/Vital Signs 07/03/18 07/03/18 07/03/18 07/03/18 01:00 03:37 04:00 07:00 Temp 97.5 Pulse 62 68 Pulse Ox 95 O2 Delivery Room Air 07/03/18 07/03/18 07/03/18 07/03/18 08:50 08:50 09:07 12:00 Temp 98.1 97.4 Pulse 77 75 Resp 17 16 B/P (MAP) 170/68 (102) 156/93 (114) Pulse Ox 95 97 97 99 O2 Delivery Room Air Room Air Room Air Room Air 07/03/18 00:00 Intake Total 200 ml Output Total 450 ml Balance -250 ml Weight (Pounds): 155 Weight (Ounces): 12.8 Weight (Calculated Kilograms): 70.898641 Constitutional: well-developed, well-nourished Respiratory: No accessory muscle use, No respiratory distress; chest expansion is symmetric, lungs clear to auscultation Cardiovascular: other (Regular with intermittent irregularity, S1 and S2, 2/6 HSM at card apex that radiates towards the axilla) Gastrointestional: No tender; soft; No guarding, No rebound; audible bowel sounds Extremities: No clubbing, No cyanosis, No significant edema Neurologic/Psychiatric: oriented x 3, grossly intact, power is 5/5 both on sides Skin: No rash on exposed areas, No ulcerations on exposed areas Results/Procedures: Labs Laboratory Tests 07/02/18 22:55: Urine Color YELLOW, Urine Clarity CLEAR, Urine pH 6.5, Urine Specific [place] 1.015L, Urine Protein NEGATIVE, Urine Glucose (UA) NEGATIVE, Urine Ketones 1+H, Urine Nitrite POSITIVEH, Urine Bilirubin NEGATIVE, Urine Urobilinogen NORMAL, Urine Leukocyte Esterase 2+H, Urine RBC (Auto) NEGATIVE, Urine RBC NONE, Urine WBC 5-10H, Urine Crystals NONE, Urine Bacteria LARGEH, Urine Casts NONE, Urine Mucus NEGATIVE, Urine Culture Indicated YES 07/03/18 03:10: White Blood Count 7.3, Red Blood Count 3.61L, Hemoglobin 11.6, Hematocrit 35, Mean Corpuscular Volume 96, Mean Corpuscular Hemoglobin 32, Mean Corpuscular Hemoglobin Concent 33, Red Cell Distribution Width 12.4, Platelet Count 203, Mean Platelet Volume 12.3H, Sodium Level 140, Potassium Level 3.8, Chloride Level 112H, Carbon Dioxide Level 16L, Anion Gap 12, Blood Urea Nitrogen 12, Creatinine 0.81, Estimat Glomerular Filtration Rate > 60, BUN/Creatinine Ratio 15, Glucose Level 88, Calcium Level 9.2, Corrected Calcium 9.4, Total Bilirubin 0.5, Aspartate Amino Transf (AST/SGOT) 19, Alanine Aminotransferase (ALT/SGPT) 16, Alkaline Phosphatase 64, Total Protein 6.4, Albumin 3.7 Laboratory Tests 07/03/18 03:10 A/P: Assessment: Vertigo/dizziness, etiology undetermined, possibly related to UTI UTI. Consider sepsis. Pt's labs exhibiting acidosis. This is being managed by Dr Dahl Chronic MVP and mod mitral regurg. Echocardiogram of April 18, 2018 showed LVEF 60-65%. No regional wall motion abnormalities identified. Grade 1 diastolic dysfunction. Mild mitral valve prolapse, involving the posterior leaf. Mod to severe, 1-2+ MR. Mild aortic valve regurg. Mild to mod TR. PASP approx 35 mmHg. 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 Mod MR, some of which tracks along the posterior wall of the LA. LVEF 60-65% Chronic frequent PACs and PVCs, documented on several studies. 30-day Event Monitor of Jun 2016 showed frequent PACs and PVCS, but no a fib or VT or SVT recorded No significant coronary artery disease on cardiac catheterization of February 2010 MPI of April 18, 2018 showed no evidence of ischemia or infarction. Gating could not be carried out d/t freqent PAC's H/o carotid arterial disease, but no recent f/u Chronic left arm and shoulder discomfort due to post-herpetic neuralgia. Relative intolerance to statins Status post right knee replacement per Dr. De Luna in December 2012. Chronic arthritis that causes marked pain and is responsive only to NSAIDs ( unresponsive to acetaminophen) Plan: * Continue to monitor rhythm * I discussed her case with Dr Dahl again on the phone * Monitor labs * Consider adding bb back to regimen if she does not exhibit bradycardia CHARY CANTU MD FACP FACC CCDS Jul 03, 2018 12:18
[2018-07-03 15:00] VITALS: BP 168/72
[2018-07-03] MEDS: ENOXAPARIN 40 MG/0.4 ML (LOVENOX) SYR SC SCH (15:57)
[2018-07-03 19:18] VITALS: BP 173/76
[2018-07-04 00:02] VITALS: BP 137/66
[2018-07-04 04:27] VITALS: BP 149/65
[2018-07-04 04:52] LABS: HEMOGLOBIN 11.5 G/DL (11.5-16.0); MEAN PLATELET VOLUME 12.1 FL (7.4-10.4); RED BLOOD COUNT 3.65 10^6/uL (4.35-5.85); RED CELL DISTRIBUTION WIDTH 12.5 % (10.0-14.5); WHITE BLOOD COUNT 4.9 10^3/uL (4.3-11.0)
[2018-07-04 05:10] LABS: ALANINE AMINOTRANSFERASE 12 U/L (0-55); ALBUMIN 3.5 GM/DL (3.2-4.5); ALKALINE PHOSPHATASE 58 U/L (40-136); BILIRUBIN,TOTAL 0.6 MG/DL (0.1-1.0); BUN/CREATININE RATIO 11; CALCIUM 8.9 MG/DL (8.5-10.1); CARBON DIOXIDE 23 MMOL/L (21-32); CHLORIDE 111 MMOL/L (98-107); CREATININE SERUM 0.79 MG/DL (0.60-1.30); GFR ESTIMATED > 60; GLUCOSE 96 MG/DL (70-105); POTASSIUM 3.7 MMOL/L (3.6-5.0); SODIUM 140 MMOL/L (135-145); TOTAL PROTEIN 6.1 GM/DL (6.4-8.2)
[2018-07-04 08:00] VITALS: BP 152/68
[2018-07-04] MEDS: PANTOPRAZOLE 40 MG (PROTONIX) VIAL IV SCH (08:55)
[2018-07-04] MEDS: cefTRIAXone FOR IV USE 1,000 MG in NS (IVPB) 50 ML IV SCH (08:55)
[2018-07-04] MEDS: NS IV 1000 ML 1,000 ML IV SCH (08:55)
--- NOTE | 2018-07-04 08:58 | Discharge Summary ---
Diagnosis/Chief Complaint Date of Admission Jul 02, 2018 at 16:38 Date of Discharge Discharge Date: Jul 04, 2018 Discharge Time: 09:00 Admission Diagnosis Admission Diagnosis BRADYCARDIA IRREGULAR RHYTHM - SUSPECT AFIB DIZZINESS NAUSEA AND EMESIS Discharge Diagnosis BRADYCARDIA IRREGULAR RHYTHM DIZZINESS NAUSEA AND EMESIS Reason Hospital Visit PT IS A 72 Y/O FEMALE WHO IS KNOWN TO MY CLINIC. SHE PRESENTED TO THE OFFICE WITH COMPLAINTS OF FEELING DIZZY AND CLAMMY ALL DAY - SHE STATED THAT SHE WOKE UP FEELING OKAY THIS MORNING, THEN AROUND 3PM SHE FELT LIKE SHE WAS GOING TO PASS OUT EARLIER TODAY AND AGAIN PRIOR TO COMING IN TO THE OFFICE. SHE REPORTS THAT SHE DID NOT LOOSE CONSCIOUSNESS BUT HAD TO SIT SHE WAS SHORT OF BREATH AND LIGHT HEADED. SHE REPORTS THAT SHE WAS SEEN BY DR. CANTU RECENTLY AND TOLD T HAT SHE HAS MITRAL VALVE REGURGITATION, BUT DID NOT HAVE AN ARRHYTHMIA THAT SHE REMEMBERS., SHE TOOK METOPROLOL THIS MORNING. Discharge Summary Consultations DR. CANTU Discharge Physical Examination Allergies: Coded Allergies: Thiopental (Verified Allergy, Unknown, 05/27/07) Vitals & I&Os General Appearance: Alert, Oriented X3, Cooperative, No Acute Distress HEENT: Atraumatic, PERRLA Respiratory: Clear to Auscultation Cardiovascular: Regular Rate, Other (PAC) Abdominal: Normal Bowel Sounds, Soft Skin: No Rashes, No Breakdown Neuro: Cranial Nerves 3-12 NL Psych/Mental Status: Mental Status NL, Mood NL Hospital Course BRADYCARDIA IRREGULAR RHYTHM - SUSPECT AFIB DIZZINESS NAUSEA AND EMESIS BRADYCARDIA - WITH IRREGULAR RHYTHM - SUSPECTED AFIB - DISCUSSED WITH DR. CANTU - PT ADMITTED TO THE HOSPITAL FROM CLINIC, IV FLUIDS INITIATED AND EKG OBTAINED, PT PLACED IN ICU FOR CLOSE MONITORING AND TELEMETRY PLACED ON PATIENT. - PT DID NOT HAVE AFIB ON EKG - BUT MULTIPLE PAC'S - SUPPORTIVE CARE AT THIS TIME, MONITOR HER DIZZINESS AND HEART RATE OFF OF THE METOPROLOL. - SYMPTOMS IMPROVED, THEREFORE PLAN IS TO DISCHARGE PT ON NO BETA ANGELIQUE THERAPY AT THIS TIME AND MONITOR HER HEART RATE AN OUTPATIENT, MAY NEED TO RE- INITIATE HEART RATE CONTROLLING MEDICATIONS. DIZZINESS WITH NAUSEA AND EMESIS - CHECK LABS, CHECK CHEST XRAY, ZOFRAN IV AND IV FLUIDS INITIATED. ADVANCED DIET TOLERATED. FOR GI PROPHYLAXIS, WILL START PROTONIX IV BID AND LOVENOX FOR DVT PROPHYLAXIS Pending Labs Discharge Condition at discharge IMPROVED SYMPTOMS Instructions to patient/family Please see electronic discharge instructions given to patient. Discharge Medications Reviewed and agree with Discharge Medication list on patient's Discharge Instruction sheet Clinical Quality Measures DVT/VTE Risk/Contraindication: Risk Factor Score Per Nursin RFS Level Per Nursing on Admit: 2=Moderate HIGINIO OQUENDO MD Jul 04, 2018 08:58
[2018-07-04] MEDS ORDERED: LOSA25TA6 PO (09:00)
[2018-07-04] MEDS ORDERED: LACT1TAB9 PO (09:00)
[2018-07-04] MEDS ORDERED: CEPH-507 PO (09:00)
--- NOTE | 2018-07-04 09:02 | Discharge Inst-Complex ---
PDI Med Rec & Follow Up Appt. New Medications: Cephalexin (Keflex) 500 Mg Capsule 500 MG PO QID, #28 CAP Lactobacillus Acidophilus (Acidophilus) 1 Each Tablet 1 EACH PO TID, #60 TAB Losartan Potassium (Losartan Potassium) 25 Mg Tablet 25 MG PO DAILY, #30 TAB 6 Refills Continued Medications: Acetaminophen/Diphenhydramine (Tylenol Pm Ex-Strength Caplet) 1 Each Tablet 1 TAB PO HS, TAB Amoxicillin (Amoxicillin) 500 Mg Capsule 2000 MG PO UD PRN for DENTAL APPT, CAP TAKES 4 (500MG) CAPSULES ONE HOUR PRIOR TO DENTAL APPOINTMENTS Aspirin (Aspirin EC) 81 Mg Tablet.dr 81 MG PO HS, TAB Cholecalciferol (Vitamin D3) (Vitamin D3) 2,000 Unit Capsule 2000 UNIT PO DAILY, CAP Gabapentin (Gabapentin) 100 Mg Capsule 100 MG PO TID, CAP Lysine (Lysine) 500 Mg Tablet 500 MG PO DAILY, TAB Meloxicam (Meloxicam) 15 Mg Tablet 15 MG PO DAILY, TAB Omeprazole (Omeprazole) 20 Mg Capsule.dr 20 MG PO DAILY, CAP Vitamin B Complex & Vit C No.4 (Super B Complex) 150 Mg Tablet 150 MG PO HS, TAB Discontinued Medications: Metoprolol Succinate (Metoprolol Succinate) 25 Mg Tab.er.24h 25 MG PO DAILY, TAB Prescription: Transmitted to Pharmacy Activity, Diet and PDI Resume Normal Activity: Yes Discharge Diet: Regular Diet Driving Instructions: No Driving for 24 Hours Symptoms to Reoprt to : Appetite Changes, Bleeding Excessive, Fever Over 101 Degrees F, Pain/Pressure in Chest For Problems or Questions: Contact Your Physician, Go to Emergency Room HIGINIO OQUENDO MD Jul 04, 2018 09:02
--- NOTE | 2018-07-04 09:19 | Progress Note-Cardiology ---
Cardiology SOAP Progress Note Subjective: Sitting up in bed. Reports no c/o dizziness this morning. No c/o CP, palpitations, syncope, dyspnea or near syncope. Wants to go home. Objective: I&O/Vital Signs 07/04/18 07/04/18 07/04/18 07/04/18 00:02 01:00 04:27 07:00 Temp 97.3 97.5 Pulse 64 67 71 67 Resp 16 16 B/P (MAP) 137/66 (89) 149/65 (93) Pulse Ox 94 96 O2 Delivery Room Air Room Air 07/04/18 08:00 Temp 98.2 Pulse 56 Resp 20 B/P (MAP) 152/68 (96) Pulse Ox 96 O2 Delivery Room Air 07/04/18 00:00 Intake Total 1400 ml Balance 1400 ml Weight (Pounds): 153 Weight (Ounces): 9.6 Weight (Calculated Kilograms): 69.683376 Constitutional: well-developed, well-nourished Respiratory: No accessory muscle use, No respiratory distress; chest expansion is symmetric, lungs clear to auscultation Cardiovascular: other (Regular with intermittent irregularity, S1 and S2, 2/6 HSM at card apex that radiates towards the axilla) Gastrointestional: No tender; soft; No guarding, No rebound; audible bowel sounds Extremities: No clubbing, No cyanosis, No significant edema Neurologic/Psychiatric: oriented x 3, grossly intact, power is 5/5 both on sides Skin: No rash on exposed areas, No ulcerations on exposed areas Results/Procedures: Labs Laboratory Tests 07/04/18 04:30: White Blood Count 4.9, Red Blood Count 3.65L, Hemoglobin 11.5, Hematocrit 35, Mean Corpuscular Volume 95, Mean Corpuscular Hemoglobin 32, Mean Corpuscular Hemoglobin Concent 33, Red Cell Distribution Width 12.5, Platelet Count 214, Mean Platelet Volume 12.1H, Sodium Level 140, Potassium Level 3.7, Chloride Level 111H, Carbon Dioxide Level 23, Anion Gap 6, Blood Urea Nitrogen 9, Creatinine 0.79, Estimat Glomerular Filtration Rate > 60, BUN/Creatinine Ratio 11, Glucose Level 96, Calcium Level 8.9, Corrected Calcium 9.3, Total Bilirubin 0.6, Aspartate Amino Transf (AST/SGOT) 14, Alanine Aminotransferase (ALT/SGPT) 12, Alkaline Phosphatase 58, Total Protein 6.1L, Albumin 3.5 Microbiology 07/02/18 Urine Culture - Preliminary, Resulted Escherichia coli Laboratory Tests 07/03/18 03:10 07/04/18 04:30 A/P: Assessment: Vertigo/dizziness, etiology undetermined, possibly related to UTI - no further c /o UTI. Consider sepsis. Pt's labs exhibiting acidosis. This is being managed by Dr Dahl. Acidosis has resolved on lab work of 07/04/18 Chronic MVP and mod mitral regurg. Echocardiogram of April 18, 2018 showed LVEF 60-65%. No regional wall motion abnormalities identified. Grade 1 diastolic dysfunction. Mild mitral valve prolapse, involving the posterior leaf. Mod to severe, 1-2+ MR. Mild aortic valve regurg. Mild to mod TR. PASP approx 35 mmHg. 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 Mod MR, some of which tracks along the posterior wall of the LA. LVEF 60-65% Chronic frequent PACs and PVCs, documented on several studies. 30-day Event Monitor of May/Jun 2016 showed frequent PACs and PVCS, but no a fib or VT or SVT recorded Hypertension No significant coronary artery disease on cardiac catheterization of February 2010 MPI of April 18, 2018 showed no evidence of ischemia or infarction. Gating could not be carried out d/t freqent PAC's H/o carotid arterial disease, but no recent f/u Chronic left arm and shoulder discomfort due to post-herpetic neuralgia. Relative intolerance to statins Status post right knee replacement per Dr. De Luna in December 2012. Chronic arthritis that causes marked pain and is responsive only to NSAIDs ( unresponsive to acetaminophen) Plan: * Continue to monitor rhythm * Discussed with Dr Dahl this morning * Monitor labs * One episode of SB documented this morning, albeit asymptomatic, will continue to hold on BB for now d/t concerns of bradycardia * BP not well controlled - Losartan started per Dr. Dahl * OK to discharge home to day with out pt f/u in 2 weeks Physician Assessment Physician Assessment No cp or palp or syncope or shortness of breath Lungs: clear Cor: reg with intermittent irregularity Ext: no c/c/e A&R * As documented in our note above that I updated (italics) and as noted below * We have reviewed her case with Dr Dahl. Although we have not seen any significant michelle, the possibility of bb contributing to symptoms cannot be excluded. Dr Dahl will add ARBs for bp while continuing to hold off on bb ANABELLA MELISSA LEAD C DEVELOPER Jul 04, 2018 09:19 CHARY CANTU MD FACP FAC CCDS Jul 04, 2018 10:13
== END 2018-07-04 10:30 | disposition home or self-care (01) ==
LOC: EDSTATUS 11:49 → ICU 16:38 → UNDOADMIN 16:38 → 4TH 07-03 11:00 → ICU 07-03 11:00 → EDPENDDISTM 07-04 09:00 → UNDODISIN 07-04 10:30
PROVIDERS: ADMIT Family Medicine; ATTEND Family Medicine
DX: R42 Dizziness and giddiness (principal); N39.0 Urinary tract infection, site not specified; I34.0 Nonrheumatic mitral (valve) insufficiency; I49.1 Atrial premature depolarization; R11.2 Nausea with vomiting, unspecified; I10 Essential (primary) hypertension; K21.9 Gastro-esophageal reflux disease without esophagitis; B02.29 Other postherpetic nervous system involvement; M19.91 Primary osteoarthritis, unspecified site; Z79.82 Long term (current) use of aspirin; Z79.899 Other long term (current) drug therapy
CPT/HCPCS: 36415; 71046; 80053; 81000; 85027; 87077; 87088; 87186; 93005; G0378

== ENCOUNTER → 2018-11-19 | Outpatient (CLI) | payer MEDICARE ==
[~2018-11-19] MED LIST changes: +AMOX500C2 PO; +CEPH-507 PO; +LACT1TAB9 PO; +LOSA25TA41 PO
--- NOTE | 2018-11-19 13:21 | Diagnostic Imaging Report ---
INDICATION: Routine screening. COMPARISON: 08/21/2016 and 07/19/2015. TECHNIQUE: 2D and 3D bilateral screening mammography was performed with CAD. FINDINGS: Scattered fibroglandular densities are identified bilaterally. The parenchymal pattern appears to be stable. No dominant mass or malignant appearing microcalcifications are seen. The axillae are unremarkable. IMPRESSION: No mammographic features suspicious for malignancy are identified. ACR BI-RADS Category 1: Negative. Result letter will be mailed to the patient. Note: At least 10% of breast cancer is not imaged by mammography. Dictated by: Dictated on workstation # [id number]
== END ==
LOC: RAD 08:24
PROVIDERS: ATTEND Family Medicine
DX: Z12.31 Encounter for screening mammogram for malignant neoplasm of breast (principal)
CPT/HCPCS: 77067

== ENCOUNTER → 2018-12-20 | Outpatient (CLI) | payer MEDICARE | LOC: CARD 12:06 | PROVIDERS: ATTEND Internal Medicine Cardiovascular Disease | DX: R00.2 Palpitations (principal); I34.1 Nonrheumatic mitral (valve) prolapse; I49.3 Ventricular premature depolarization; I77.9 Disorder of arteries and arterioles, unspecified; I25.10 Atherosclerotic heart disease of native coronary artery without angina pectoris | CPT/HCPCS: 93225; 93226 ==

== ENCOUNTER 2019-01-21 06:52 | Day surgery (SDC) | payer MEDICARE ==
[2019-01-21] VITALS (8 sets, daily range): BP systolic 133–163; BP diastolic 68–99
[~2019-01-21] VITALS: Ht 172.7 cm; Wt 69.7 kg
[2019-01-21] MEDS ORDERED: HEParin 1000 UNIT/ML (10ML VIAL) FOR BOLUS ONE (06:56)
[2019-01-21] MEDS ORDERED: LIDOCAINE 1% INJ 20 ML 20 ML VIAL ONE (06:56)
[2019-01-21] MEDS ORDERED: NS IV 1000 ML 3,000 ML ONE (06:56)
[2019-01-21] MEDS ORDERED: NS IV 1000 ML 1,000 ML IV SCH ×2 (07:15→10:17)
[2019-01-21 07:25] LABS: HEMOGLOBIN 11.8 G/DL (11.5-16.0); MEAN PLATELET VOLUME 12.1 FL (7.4-10.4); RED CELL DISTRIBUTION WIDTH 12.8 % (10.0-14.5); WHITE BLOOD COUNT 5.2 10^3/uL (4.3-11.0)
[2019-01-21 07:28] LABS: PROTHROMBIN TIME PATIENT 13.4 SEC (12.2-14.7)
[2019-01-21 07:39] LABS: ALBUMIN 4.2 GM/DL (3.2-4.5); BILIRUBIN,TOTAL 0.7 MG/DL (0.1-1.0); CALCIUM 9.5 MG/DL (8.5-10.1); CREATININE SERUM 1.03 MG/DL (0.60-1.30); POTASSIUM 3.7 MMOL/L (3.6-5.0); TOTAL PROTEIN 7.3 GM/DL (6.4-8.2)
[2019-01-21] MEDS ORDERED: MIDAZOLAM 5 MG/5 ML (VERSED) VIAL ONE (07:45)
[2019-01-21] MEDS ORDERED: FLU QUADRIvalent (5+ YOA) 2018-2019 (AFLURIA) 0.5 ML IM ONE (07:45)
[2019-01-21] MEDS ORDERED: fentaNYL INJECTION 100 MCG/2 ML AMP ONE (07:45)
--- NOTE | 2019-01-21 10:17 | Cardiac Procedure Note-CS/ASA ---
Pre-Procedure Note Pre-Op Procedure Note H&P Reviewed The H&P was reviewed, patient examined and no changes noted. Date H&P Reviewed: Jan 21, 2019 Time H&P Reviewed: 08:50 Conscious Sedation Pre-Proced Time 08:50 ASA Score 3 For ASA 3 and 4: Consider anesthesia and medical clearance. Also, for patients with a history of failed moderate sedation consider anesthesia. Airway Lungs Heart ASA score ASA 1: a normal healthy patient ASA 2: a patient with a mild systemic disease (mid diabetes, controlled hypertension, obesity ASA 3: a patient with a severe systemic disease that limits activity (angina , COPD, prior Myocardial infarction) ASA 4: a patient with an incapacitating disease that is a constant threat to life (CHF, renal failure) ASA 5: a moribund patient not expected to survive 24 hrs. (ruptured aneurysm) ASA 6: a declared brain- patient whose organs are being harvested. For emergent operations, add the letter E after the classification Mallampati Classification Grade 2 Sedation Plan Analgesia, Amnesia, Plan communicated to team members, Discussed options with patient/fam, Discussed risks with patient/fam The patient is an appropriate candidate to undergo the planned procedure, sedation, and anesthesia. The patient immediately re-assessed prior to indication. CHARY CANTU MD FACP FAC CCDS Jan 21, 2019 10:17
--- NOTE | 2019-01-21 10:21 | Discharge Inst-Cardiology ---
Discharge Inst-Cardiac Discharge Medications Continued Medications: Acetaminophen/Diphenhydramine (Tylenol Pm Ex-Strength Caplet) 1 Each Tablet 1 TAB PO HS, TAB Aspirin (Aspirin EC) 81 Mg Tablet.dr 81 MG PO HS, TAB Cholecalciferol (Vitamin D3) (Vitamin D3) 2,000 Unit Capsule 2000 UNIT PO DAILY, CAP Gabapentin (Gabapentin) 100 Mg Capsule 100 MG PO TID, CAP Lactobacillus Acidophilus (Acidophilus) 1 Each Tablet 1 EACH PO TID, #60 TAB Losartan Potassium (Losartan Potassium) 25 Mg Tablet 25 MG PO DAILY, #30 TAB 6 Refills Lysine (Lysine) 500 Mg Tablet 500 MG PO DAILY, TAB Meloxicam (Meloxicam) 15 Mg Tablet 15 MG PO DAILY, TAB Omeprazole (Omeprazole) 20 Mg Capsule.dr 20 MG PO DAILY, CAP Vitamin B Complex & Vit C No.4 (Super B Complex) 150 Mg Tablet 150 MG PO HS, TAB CHARY CANTU MD FACP FAC CCDS Jan 21, 2019 10:21
--- NOTE | 2019-01-21 10:21 | Discharge Inst-Post CATH ---
Discharge Inst-CATH/EP Post Cardiac Cath/EP D/C Inst Follow Up/Plan F/u with Dr Deleon next week CARDIAC CATH DISCHARGE INSTRUCTIONS *Hold Metformin for 48 hours post heart cath. ACTIVITY * Go Home directly and rest. * Limit activity of the leg (or wrist if it was used) for 7 days including aerobics, swimming, jogging, bicycling, etc. * Restrict stair-climbing for 7 days if possible, if not, climb up with your non -cath leg, then bring together on the same step. * Avoid lifting, pushing, pulling or excessive movement of the affected extremity for 7 days. * Customary sexual activity may be resumed after 2 days-use caution not to use a position that strains or causes pain to the affected extremity. * No driving for 24 hours. * NO SMOKING. * Avoid straining for bowel movements for 7 days. * Gentle walking on level ground is allowed. * Returning to work will depend on the type of procedure and the results. Your doctor will discuss this with you. CALL YOUR DOCTOR FOR ANY OF THE FOLLOWING: *If bleeding from the puncture site occurs- Apply gentle pressure to site with clean cloth and call your doctor or EMS. * If a knot or lump forms under the skin, increases in size, or causes pain. * If bruising appears to be worsening or moving further down your leg instead of disappearing. * Temperature above 101 F. CARE OF YOUR GROIN INCISION; * Bruising or purple discoloration of the skin near the puncture site is common. * You may shower only, no bathtub bathing for 5 days. Be careful to avoid slipping as your leg may feel stiff. * If a closure device was used on your femoral artery, please see the attached guide regarding care of the device and your leg. * Leave the dressing on, until removed by office staff. CARE OF YOUR WRIST INCISION; * Bruising or purple discoloration of the skin near the puncture site is common. * You may shower. * DO NOT submerge wrist. * Leave dressing on, until removed by office staff.. CHARY DELEON MD [facility] CCDS Jan 21, 2019 10:21
[2019-01-21] MEDS ORDERED: PATIENT MAY USE OWN MEDS, ALL PO SCH (10:30)
--- NOTE | 2019-01-21 11:20 | CARDIAC CATHETERIZATION ---
DATE OF SERVICE: 01/21/2019 CARDIAC CATHETERIZATION REPORT The patient is a 73-year-old lady with a history of mitral valve prolapse and mitral regurgitation. She has had more shortness of breath lately and has had more atrial ectopy. Echocardiography has shown mild mitral valve prolapse and moderate to severe mitral regurgitation. Cardiac catheterization was carried out today to further evaluate her mitral regurgitation to see if she needs mitral valve repair. Informed consent was obtained. PROCEDURE IN DETAIL: She was brought to the cardiac catheterization laboratory in a fasting state. Right groin was prepared and draped in the usual sterile fashion. Lidocaine 1% was used for local anesthesia. Modified Seldinger technique was used to advance a 5-[place] Islander sheath in the right femoral artery and a 7-[place] sheath in the right femoral vein. We used a 7-[place] catheter to carry out right heart catheterization and to measure oxygen saturation in the various right heart chambers. The [place] catheter was removed. We advanced a 5-[place] Islander pigtail catheter through the arterial sheath. This was placed in the left ventricle after crossing the aortic valve. Left ventricular angiography was performed. The catheter was pulled back and removed. We used 5-[place] Island[place] JL4 catheter for left coronary angiography and 5-[place]er JR4 catheter for right coronary angiography. At the end of the procedure, angiography of the right femoral artery was carried out through the sheath and Mynx was used to achieve hemostasis. She tolerated the procedure well. HEMODYNAMICS: Pulmonary artery systolic pressure is 36/19 with a mean of 28 mmHg. Mean pulmonary capillary wedge pressure is 14 mmHg. Right atrial mean pressure is 10 mmHg. Right ventricular pressure is 36/11. Left ventricular end diastolic pressure is 17 mmHg. There was no significant pressure gradient on pullback across the aortic valve. Ascending aortic pressure was 149/69 with a mean of 102 mmHg. Cardiac output by thermodilution was 3.77 liters per minute with a cardiac index of 2.01. LEFT VENTRICULAR CORONARY ANGIOGRAPHY: Left ventricular coronary angiography was carried out in the right anterior oblique and the left anterior oblique projections. Global left ventricular systolic function is normal. No regional wall motion abnormality is seen. Left ventricular ejection fraction is approximately 65%. There appears to be moderate mitral regurgitation. CORONARY ANGIOGRAPHY: Left main coronary artery, left anterior descending artery, left circumflex artery, right coronary artery are all free of any angiographically significant disease. Right coronary artery is dominant. CONCLUSIONS: 1. No significant coronary artery disease. 2. Moderate mitral regurgitation. 3. Normal left ventricular systolic function with an ejection fraction of approximately 65%. 4. Mild elevation of left ventricular end-diastolic pressure and mild elevation of pulmonary capillary wedge pressure. DISCUSSION AND RECOMMENDATIONS: Based on the results of the study, it appears appropriate to continue a conservative approach for now. We will continue to closely follow her mitral regurgitation. Job ID: [id number] DocumentID: [id number] Dictated Date: 01/21/2019 10:11:23 Observation Assistant Date: 01/21/2019 11:19:57 Dictated By: CHARY CANTU MD, MA, FACP, FACC,
== END 2019-01-21 13:30 | disposition home or self-care (01) ==
LOC: CATH 06:52 → SDC 10:30 → CATH 13:30
PROVIDERS: ATTEND Internal Medicine Cardiovascular Disease
DX: I08.3 Combined rheumatic disorders of mitral, aortic and tricuspid valves (principal); I25.10 Atherosclerotic heart disease of native coronary artery without angina pectoris; I27.20 Pulmonary hypertension, unspecified; I49.3 Ventricular premature depolarization; I49.1 Atrial premature depolarization; Z79.82 Long term (current) use of aspirin; Z79.899 Other long term (current) drug therapy
CPT/HCPCS: 36415; 36430; 80053; 80061; 85027; 85610; 85730; 87081; 93005; 93460

== ENCOUNTER → 2019-11-20 | Outpatient (CLI) | payer MEDICARE ==
[~2019-11-20] MED LIST changes: -ACET-2469 PO; +ACET-2715 PO; -METO-387 PO; +MTP25TSR PO; +OMEP-280 PO; -OMEP20CA12 PO
--- NOTE | 2019-11-21 08:11 | Diagnostic Imaging Report ---
Digital mammogram. Indication: Bilateral screening The study was compared to prior exams of 11/19/2018 and 08/21/2016. At this time there are no current complaints. The current study was also evaluated with a Computer Aided Detection (CAD) system. FINDINGS: There are scattered fibroglandular densities in both breasts which could obscure a lesion. Overall, there does not appear to have been any significant change when compared to the prior exam. No primary or secondary sign of malignancy is noted. IMPRESSION: There is no radiographic evidence for malignancy. ACR BI-RADS Category 1: Negative. Result letter will be mailed to the patient. Note: At least 10% of breast cancer is not imaged by mammography. Dictated by: Dictated on workstation # [id number]
== END ==
LOC: RAD 07:20
PROVIDERS: ATTEND Family Medicine
DX: Z12.31 Encounter for screening mammogram for malignant neoplasm of breast (principal)
CPT/HCPCS: 77067

== ENCOUNTER → 2020-01-22 | Outpatient (CLI) | payer MEDICARE ==
[~2020-01-22] MED LIST changes: -OMEP-280 PO; +OMEP20CA18 PO
== END ==
LOC: CARD 12:35
PROVIDERS: ATTEND Internal Medicine Cardiovascular Disease
DX: R00.2 Palpitations (principal); I34.1 Nonrheumatic mitral (valve) prolapse; I25.10 Atherosclerotic heart disease of native coronary artery without angina pectoris; I77.89 Other specified disorders of arteries and arterioles; I08.1 Rheumatic disorders of both mitral and tricuspid valves
CPT/HCPCS: 93225; 93226; 93306

== ENCOUNTER 2020-12-01 10:02 | Emergency (ER) | payer MEDICARE ==
[~2020-12-01] VITALS: Ht 172.7 cm; Wt 69.5 kg
[~2020-12-01 10:02] MED LIST changes: -ACET-2715 PO; +ACET-3075 PO; +ASPI-1238 PO; -ASPI-983 PO
--- NOTE | 2020-12-01 10:42 | ED Cardiac General ---
History of Present Illness General Chief Complaint: Cardiac/General Problems Stated Complaint: HEART RATE FLUCTUATING Nursing Triage Note: AMB TO ROOM REPORTS THAT RECEIVED HER FIRST COVID VACCAINE TODAY APX 15 MIN AFTER FELT DIZZY AND SOA HR WAS TAKEN AT IT WAS 30 WASKEPT 15MIN MORE AND TOLD TO COME TO ED . ON ADMIT NO C/O FEELING BETTER. Source: patient Exam Limitations: no limitations History of Present Illness Date Seen by Provider: Dec 01, 2020 Time Seen by Provider: 10:28 Initial Comments Patient is a 74-year-old female who presents to the emergency department today after her first Covid vaccination with a chief complaint of feeling a little bit lightheaded and having some palpitations. Per review of the medical record patient has a history of frequent PVCs and PACs and is followed by Dr. Rodriguez. Patient denies any shortness of breath, chest pain. No nausea, vomiting, diarrhea. No sweating or myalgias. Patient did not have a syncopal event after her Covid vaccination. She just became concerned because her palpitations became more prominent. No recent illnesses such as fevers, chills, congestion or URI symptoms. All other review of systems reviewed and negative except as stated above. Timing/Duration: 1 hour Severity: mild Activities at Onset: emotional stress Prior CP/Workup: cardiac cath NTG SL APPLICATION SECURITY DEVELOPER: No ASA po APPLICATION SECURITY DEVELOPER: No Associated Systoms: Other (Palpitations) Allergies and Home Medications Allergies Coded Allergies: Thiopental (Verified Allergy, Unknown, 05/27/07) Home Medications Acetaminophen/Diphenhydramine 1 Each Tablet, 1 TAB PO HS, (Reported) Aspirin 81 Mg Tablet.dr, 81 MG PO HS, (Reported) Cholecalciferol (Vitamin D3) 2,000 Unit Capsule, 2,000 UNIT PO DAILY, (Reported) Gabapentin 100 Mg Capsule, 100 MG PO TID, (Reported) Lactobacillus Acidophilus 1 Each Tablet, 1 EACH PO TID Prescribed by: HIGINIO OQUENDO on 07/04/18 0900 Losartan Potassium 25 Mg Tablet, 25 MG PO DAILY Prescribed by: HIGINIO OQUENDO on 07/04/18 0900 Lysine 500 Mg Tablet, 500 MG PO DAILY, (Reported) Meloxicam 15 Mg Tablet, 15 MG PO DAILY, (Reported) Omeprazole 20 Mg Capsule.dr, 20 MG PO DAILY, (Reported) Vitamin B Complex & Vit C No.4 150 Mg Tablet, 150 MG PO HS, (Reported) Patient Home Medication List Home Medication List Reviewed: Yes Review of Systems Review of Systems Constitutional: see HPI, other ("Lightheaded") EENTM: No Symptoms Reported Respiratory: No Symptoms Reported Cardiovascular: Palpitations Gastrointestinal: No Symptoms Reported Genitourinary: No Symptoms Reported Musculoskeletal: no symptoms reported Skin: no symptoms reported Psychiatric/Neurological: No Symptoms Reported All Other Systems Reviewed Negative Unless Noted: Yes Past Ryxifee-Egfmll-Btoxdu Hx Patient Social History Alcohol Use: Occasionally Uses Alcohol Beverage of Choice: Wine Smoking Status: Never a Smoker 2nd Hand Smoke Exposure: No Recent Infectious Disease Expo: No Recent Hopitalizations: No Immunizations Up To Date Tetanus Booster (TDap): More than 5yrs PED Vaccines UTD: No Date of Pneumonia Vaccine: Jul 07, 2014 Seasonal Allergies Seasonal Allergies: No Past Medical History Surgeries: Yes (HYSTERECTOMY, REMOVAL OF SCAR TISSUE 2003) Abdominal, Appendectomy, Breast, Hysterectomy, Joint Replacement Respiratory: No Currently Using CPAP: No Currently Using BIPAP: No Cardiac: Yes (MITRAL REGURITATION) Hypertension, Valvular Heart Disease Neurological: No Reproductive Disorders: No Female Reproductive Disorders: 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 Sexually Transmitted Disease: No HIV/AIDS: No Genitourinary: No Gastrointestinal: Yes Gastroesophageal Reflux Musculoskeletal: Yes Arthritis Endocrine: No HEENT: No Loss of Vision: Denies Hearing Impairment: Denies Cancer: No Did You Recieve Any Treatments: No Psychosocial: No Integumentary: No Blood Disorders: No Adverse Reaction/Blood Tranf: No Family Medical History Cancer, Other Conditions/Hx Physical Exam Vital Signs Vital Signs - First Documented 12/01/20 10:06 Temp 36.4 Pulse 69 Resp 18 B/P (MAP) 183/86 (118) O2 Delivery Room Air Capillary Refill : Less Than 3 Seconds Height, Weight, BMI Height: 5'8.00" Weight: 153lbs. 9.6oz. 69.136177kd; 23.00 BMI Method:Estimated General Appearance: No Apparent Distress, WD/WN HEENT: PERRL/EOMI Neck: Normal Inspection Respiratory: Lungs Clear, Normal Breath Sounds Cardiovascular: Regular Rate, Rhythm, Other (Audible bigeminal pattern is auscultated) Gastrointestinal: Normal Bowel Sounds, Non Tender, Soft Extremity: Normal Capillary Refill, Normal Inspection, Normal Range of Motion Neurologic/Psychiatric: Alert, Oriented x3, No Motor/Sensory Deficits, Normal Mood/Affect, seo specialist II-XII Norm as Tested Skin: Normal Color, Warm/Dry Progress/Results/Core Measures Results/Orders Lab Results Laboratory Tests Test 12/01/20 10:33 Range/Units Sodium Level 140 135-145 MMOL/L Potassium Level 4.0 3.6-5.0 MMOL/L Chloride Level 106 98-107 MMOL/L Carbon Dioxide Level 21 21-32 MMOL/L Anion Gap 13 5-14 MMOL/L Blood Urea Nitrogen 20 H 7-18 MG/DL Creatinine 0.89 0.60-1.30 MG/DL Estimat Glomerular Filtration Rate > 60 BUN/Creatinine Ratio 22 Glucose Level 89 70-105 MG/DL Calcium Level 9.6 8.5-10.1 MG/DL My Orders Orders - RAFFY THURMAN MD Basic Metabolic Panel (12/01/20 10:41) Ekg Tracing (12/01/20 10:41) Vital Signs/I&O 12/01/20 10:06 Temp 36.4 Pulse 69 Resp 18 B/P (MAP) 183/86 (118) O2 Delivery Room Air Blood Pressure Mean: 118 Progress Progress Note : Time: 11:27 Progress Note Patient seen and examined, 74-year-old who presented after her first Covid vaccination today with a chief complaint of feeling lightheaded and having some palpitations. Evaluation today includes a physical exam and a BMP. The patient is on Lasix. I did check a basic metabolic panel to evaluate her electrolyte status. These are all within normal limits. The patient's vital signs have been stable. She has no clinical or objective findings to warrant further work- up or evaluation here in the emergency department. Patient is comfortable with discharge to home. She states that she feels improved. She will follow up with Dr. Deleon on an outpatient basis to further evaluate her palpitations which have been pre-existing and longstanding. All questions are sought and answered. Patient is stable for discharge. Departure Impression Primary Impression: Palpitations Disposition: 01 HOME, SELF-CARE Condition: Stable Departure-Patient Inst. Decision time for Depature: 11:28 Referrals: HIGINIO OQUENDO MD (PCP/Family) Primary Care Physician Patient Instructions: Palpitations Add. Discharge Instructions: Please continue your daily medications as prescribed. Drink plenty of fluids to stay well-hydrated. 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 Return to the emergency room for any new concerns, worsening symptoms or other emergent complaints. RAFFY THURMAN MD Dec 01, 2020 10:42
[2020-12-01 10:53] LABS: CHLORIDE 106 MMOL/L (98-107); SODIUM 140 MMOL/L (135-145)
[2020-12-01 10:54] LABS: CALCIUM 9.6 MG/DL (8.5-10.1); GLUCOSE 89 MG/DL (70-105)
[2020-12-01 10:56] LABS: CARBON DIOXIDE 21 MMOL/L (21-32)
[2020-12-01 10:58] LABS: CREATININE SERUM 0.89 MG/DL (0.60-1.30); GFR ESTIMATED > 60
[2020-12-01 10:59] LABS: BUN/CREATININE RATIO 22
[2020-12-01 11:34] VITALS: BP 159/96
== END 2020-12-01 11:40 | disposition home or self-care (01) ==
LOC: EDUNIT# 10:02 → ER 10:04
DX: R00.2 Palpitations (principal); R42 Dizziness and giddiness; I10 Essential (primary) hypertension; K21.9 Gastro-esophageal reflux disease without esophagitis; Z86.79 Personal history of other diseases of the circulatory system; Z79.82 Long term (current) use of aspirin; Z88.4 Allergy status to anesthetic agent; Z95.9 Presence of cardiac and vascular implant and graft, unspecified
CPT/HCPCS: 36415; 80048; 93005

== ENCOUNTER → 2021-08-02 | Outpatient (CLI) | payer MEDICARE ==
--- NOTE | 2021-08-02 09:36 | Diagnostic Imaging Report ---
INDICATION: Postmenopausal state COMPARISON: 08/01/2013 FINDINGS: AP Spine L1-L4: [BMD (g/cm2): 0.840] [T-Score: -3.0] [Z-Score: -1.3] [BMD Previous: 1.009] [BMD % Change: -16.7] LT Hip Neck: [BMD (g/cm2): 0.811] [T-Score: -1.6] [Z-Score: 0.3] LT Hip Total: [BMD (g/cm2):0.844] [T-Score:-1.3] [Z-Score: 0.5] [BMD Previous: 0.921] [BMD % Change: -8.4] RT Hip Neck: [BMD (g/cm2):0.770] [T-Score:-1.9] [Z-Score:0.0] RT Hip Total: [BMD (g/cm2):0.722] [T-score:-2.3] [Z-Score:-0.5] [BMD Previous:0.784] [BMD % Change:-7.9] *Indicates significant change from prior examination based on 95% confidence level. World Health Organization criteria for BMD interpretation classify patients as Normal (T-score at or above -1.0), Osteopenic (T-score between -1.0 and -2.5) or Osteoporotic (T-score at or below -2.5). LIMITATIONS AND MODIFICATION: None. FRACTURE RISK (FRAX SCORE): The ten year probability of (%): Major Osteoporotic Fracture: [13.6] Hip Fracture: [3.8] IMPRESSION: 1. Osteoporosis. 2. No significant change in bone mineral density since prior examination. 3. See below National Osteoporosis Foundation guidelines on when to potentially initiate pharmacologic therapy. Based on the National Osteoporosis Foundation Guidelines, pharmacologic treatment should be initiated in any of the following, unless clinical conditions suggest otherwise: * Any patient with prior fragility fracture of the hip or vertebrae. A spine fracture indicates 5X risk for subsequent spine fracture and 2X risk for subsequent hip fracture. * Osteoporosis (T-score <-2.5). * Postmenopausal women and men age 50 and older with low bone mass/osteopenia (T-score between -1.0 and -2.5) by DXA and 10-year major osteoporotic fracture greater than 20% or a 10-year probability of hip fracture greater than 3%. These fracture risks are supplied above in the FRAX score, if applicable. * Clinician judgement and/or patient preferences may indicate treatment for people with 10-year fracture probabilities above or below these levels. Dictated by: Dictated on workstation # [id number]
--- NOTE | 2021-08-02 12:33 | Diagnostic Imaging Report ---
Indication: Routine screening. Comparison is made with prior mammogram from 11/20/2019 and 11/19/2018. 2-D and 3-D bilateral screening mammography was performed with CAD. Scattered fibroglandular densities are identified bilaterally. Intraparenchymal lymph node in the upper outer left breast is noted. No new mass or malignant appearing microcalcifications are seen. Axillae are unremarkable. IMPRESSION: BI-RADS Category 2 No mammographic features suspicious for malignancy are identified. ACR BI-RADS Category 2: Benign findings. Result letter will be mailed to the patient. Note: At least 10% of breast cancer is not imaged by mammography. Dictated by: Dictated on workstation # [id number]
== END ==
LOC: RAD 07:48
PROVIDERS: ATTEND Family Medicine
DX: Z12.31 Encounter for screening mammogram for malignant neoplasm of breast (principal); M81.0 Age-related osteoporosis without current pathological fracture; M85.80 Other specified disorders of bone density and structure, unspecified site; E55.9 Vitamin D deficiency, unspecified; Z78.0 Asymptomatic menopausal state
CPT/HCPCS: 77063; 77067; 77080

== ENCOUNTER → 2021-08-23 | Outpatient (CLI) | payer MEDICARE ==
[~2021-08-23] VITALS: Ht 172 cm; Wt 69.5 kg
[~2021-08-23] MED LIST changes: +DENOSUMAB 60 MG/1 ML (PROLIA) SQ ONE
[2021-08-23 10:24] VITALS: BP 137/62
== END ==
LOC: SDC 09:50
PROVIDERS: ATTEND Family Medicine
DX: M81.0 Age-related osteoporosis without current pathological fracture (principal)
CPT/HCPCS: 96372

== ENCOUNTER → 2021-12-20 | Outpatient (CLI) | payer MEDICARE ==
[~2021-12-20] MED LIST changes: -DENOSUMAB 60 MG/1 ML (PROLIA) SQ ONE
== END ==
LOC: CARD 10:19
PROVIDERS: ATTEND Internal Medicine Cardiovascular Disease
DX: I08.1 Rheumatic disorders of both mitral and tricuspid valves (principal)
CPT/HCPCS: 93306

== ENCOUNTER → 2022-02-21 | Outpatient (CLI) | payer MEDICARE ==
[~2022-02-21] MED LIST changes: +DENOSUMAB 60 MG/1 ML (PROLIA) SQ SCH
[2022-02-21 11:00] VITALS: BP 114/62
== END ==
LOC: SDC 10:49
PROVIDERS: ATTEND Family Medicine
DX: M81.0 Age-related osteoporosis without current pathological fracture (principal)
CPT/HCPCS: 96372

== ENCOUNTER → 2022-03-22 | Outpatient (CLI) | payer MEDICARE ==
[~2022-03-22] MED LIST changes: -DENOSUMAB 60 MG/1 ML (PROLIA) SQ SCH
--- NOTE | 2022-03-22 09:38 | Diagnostic Imaging Report ---
INDICATION: Right lower quadrant pain. FINDINGS: A presumed surgical clip projects over the right flank. There is a small amount of stool in the colon with the fecal load not pathologic. There is no air containing dilated small or large bowel loop segment. There is no suspicious calcification. There are mild degenerative changes to the spine and moderate hip arthritis. No acute appearing abnormality. IMPRESSION: Unremarkable KUB. Dictated by: Dictated on workstation # [id number]
== END ==
LOC: RAD 08:22
PROVIDERS: ATTEND Nurse Practitioner Family
DX: R10.31 Right lower quadrant pain (principal)
CPT/HCPCS: 74018

== ENCOUNTER → 2022-05-25 | Outpatient (CLI) | payer MEDICARE ==
[~2022-05-25] MED LIST changes: +CATHETER FLUSH 10 ML SYR IV PRN; +HOLD METFORMIN - RECEIVED CONTRAST 20 ML VIAL IV SCH; +IOHEXOL 350 MG/ML 100 ML (OMNIPAQUE 350) VIAL IV ONE; +NS 100 ML (IVPB) BAG IV ONE
--- NOTE | 2022-05-25 09:43 | Diagnostic Imaging Report ---
PROCEDURE: CT abdomen and pelvis with contrast. TECHNIQUE: Multiple contiguous axial images were obtained through the abdomen and pelvis after administration of intravenous contrast. Auto Exposure Controls were utilized during the CT exam to meet ALARA standards for radiation dose reduction. All CT scans use one or more of the following dose optimizing techniques: automated exposure control, MA and/or KvP adjustment based on patient size and exam type or iterative reconstruction. INDICATION: Weight loss and functional diarrhea Note is made of several circumscribed fluid density nodules in the liver with the largest in the right lobe measuring up to 3 cm in diameter. These are likely cysts. No solid hepatic mass is identified. Gallbladder is unremarkable with an adjacent surgical clip near the fundus. There is no biliary ductal dilatation. There is no evidence of pancreatic or splenic lesion. Left adrenal gland is also unremarkable. Dense calcification in the right adrenal gland may be related to previous infection or hemorrhage. There is no evidence of focal renal abnormality. Contrast material opacifies the alimentary tract from stomach through colon. Colon is largely decompressed with occasional diverticula. Unopacified bladder is unremarkable in appearance. IMPRESSION: No evidence of acute abnormality within the abdomen or pelvis. Multiple hepatic cysts are noted and there is a surgical clip adjacent to the gallbladder fundus. Dictated by: Dictated on workstation # [id number]
== END ==
LOC: RAD 07:38
PROVIDERS: ATTEND Nurse Practitioner Family
DX: K76.89 Other specified diseases of liver (principal); K59.1 Functional diarrhea; R63.4 Abnormal weight loss
CPT/HCPCS: 74177

== ENCOUNTER → 2022-09-01 | Outpatient (CLI) | payer MEDICARE ==
[~2022-09-01] MED LIST changes: -CATHETER FLUSH 10 ML SYR IV PRN; +DENOSUMAB 60 MG/1 ML (PROLIA) SQ ONE; -HOLD METFORMIN - RECEIVED CONTRAST 20 ML VIAL IV SCH; -IOHEXOL 350 MG/ML 100 ML (OMNIPAQUE 350) VIAL IV ONE; -NS 100 ML (IVPB) BAG IV ONE
[2022-09-01 10:01] VITALS: BP 122/63
== END ==
LOC: SDC 09:45
PROVIDERS: ATTEND Family Medicine
DX: M81.0 Age-related osteoporosis without current pathological fracture (principal)
CPT/HCPCS: 96372

== ENCOUNTER → 2023-03-08 | Outpatient (CLI) | payer MEDICARE ==
[~2023-03-08] MED LIST changes: -DENOSUMAB 60 MG/1 ML (PROLIA) SQ ONE; +DENOSUMAB 60 MG/1 ML (PROLIA) SQ SCH
[2023-03-08 11:22] VITALS: BP 123/80
== END ==
LOC: SDC 10:53
PROVIDERS: ATTEND Nurse Practitioner Family
DX: M81.0 Age-related osteoporosis without current pathological fracture (principal)
CPT/HCPCS: 96372

== ENCOUNTER → 2023-08-10 | Outpatient (CLI) | payer MEDICARE ==
[~2023-08-10] MED LIST changes: -DENOSUMAB 60 MG/1 ML (PROLIA) SQ SCH
== END ==
LOC: CARD 08:17
PROVIDERS: ATTEND Internal Medicine Cardiovascular Disease
DX: I34.0 Nonrheumatic mitral (valve) insufficiency (principal)
CPT/HCPCS: 93306

== ENCOUNTER → 2023-09-18 | Outpatient (CLI) | payer MEDICARE ==
--- NOTE | 2023-09-18 13:13 | Diagnostic Imaging Report ---
INDICATION: Postmenopausal screening COMPARISON: 08/02/2021 FINDINGS: AP Spine L1-L4: [BMD (g/cm2): 0.897] [T-Score: -2.5] [Z-Score: -0.7] [BMD Previous: 0.840] [BMD % Change: 6.8*] LT Hip Neck: [BMD (g/cm2): 0.785] [T-Score: -1.8] [Z-Score: 0.3] LT Hip Total: [BMD (g/cm2):0.823] [T-Score:-1.5] [Z-Score: 0.5] [BMD Previous: 0.844] [BMD % Change: -2.5] RT Hip Neck: [BMD (g/cm2):0.764] [T-Score:-2.0] [Z-Score:0.1] RT Hip Total: [BMD (g/cm2):0.752] [T-score:-2.0] [Z-Score:-0.1] [BMD Previous:0.722] [BMD % Change:4.2] *Indicates significant change from prior examination based on 95% confidence level. World Health Organization criteria for BMD interpretation classify patients as Normal (T-score at or above -1.0), Osteopenic (T-score between -1.0 and -2.5) or Osteoporotic (T-score at or below -2.5). LIMITATIONS AND MODIFICATION: None. FRACTURE RISK (FRAX SCORE): The ten year probability of (%): Major Osteoporotic Fracture: [14.4] Hip Fracture: [4.3] IMPRESSION: 1. Osteoporosis. 2. There has been a statistically significant increase in BMD since prior exam, detailed above. 3. See below National Osteoporosis Foundation guidelines on when to potentially initiate pharmacologic therapy. Based on the National Osteoporosis Foundation Guidelines, pharmacologic treatment should be initiated in any of the following, unless clinical conditions suggest otherwise: * Any patient with prior fragility fracture of the hip or vertebrae. A spine fracture indicates 5X risk for subsequent spine fracture and 2X risk for subsequent hip fracture. * Osteoporosis (T-score <-2.5). * Postmenopausal women and men age 50 and older with low bone mass/osteopenia (T-score between -1.0 and -2.5) by DXA and 10-year major osteoporotic fracture greater than 20% or a 10-year probability of hip fracture greater than 3%. These fracture risks are supplied above in the FRAX score, if applicable. * Clinician judgement and/or patient preferences may indicate treatment for people with 10-year fracture probabilities above or below these levels. Dictated by: Dictated on workstation # [id number]
--- NOTE | 2023-09-18 16:06 | Diagnostic Imaging Report ---
INDICATION: Routine screening. COMPARISON: 08/02/2021 and 11/20/2019. TECHNIQUE: 2D and 3D bilateral screening mammography was performed with CAD. FINDINGS: Scattered fibroglandular densities are identified bilaterally. The intraparenchymal lymph node in the outer left breast is stable. The overall breast parenchymal pattern appears stable. No new mass or malignant-appearing microcalcifications are identified. The axillae are unremarkable. IMPRESSION: No mammographic features suspicious for malignancy are identified. ACR BI-RADS Category 2: Benign findings. Result letter will be mailed to the patient. Note: At least 10% of breast cancer is not imaged by mammography. Dictated by: Dictated on workstation # [id number]
== END ==
LOC: RAD 10:00
PROVIDERS: ATTEND Family Medicine
DX: Z12.31 Encounter for screening mammogram for malignant neoplasm of breast (principal); M81.8 Other osteoporosis without current pathological fracture; M85.80 Other specified disorders of bone density and structure, unspecified site
CPT/HCPCS: 77063; 77067; 77080